=== PATIENT | male | born 1975 | race Caucasian/White ===

== ENCOUNTER 2021-04-15 05:40 | Inpatient (IN) | payer OTHER, SELFPAY ==
[2021-04-15] VITALS (7 sets, daily range): BP systolic 109–139; BP diastolic 66–82; PULSE 84–108; RESP 18; TEMP 36.8–37.6; O2SAT 95–98; BMI 36.8
--- NOTE | ~2021-04-15 | XR_ITS ---
EXAMINATION: XR CHEST CLINICAL INFORMATION: Nasogastric tube placement COMPARISON: None TECHNIQUE: AP portable view of the chest was obtained. FINDINGS: Enteric tube is seen traversing below the diaphragm with tip overlying the expected location of the upper fundus. There appears to be some atelectatic change at the right base. Heart normal size. No evidence of pulmonary edema. No pneumothorax or significant pleural effusion. XR/XR chest 1V IMPRESSION: Enteric tube tip traversing just below the diaphragm with tip overlying expected location of the fundus.
--- NOTE | ~2021-04-15 | CT_ITS ---
EXAMINATION: CT ABDOMEN AND PELVIS WITH CONTRAST CLINICAL INFORMATION: Abdominal pain. Diffuse tenderness. COMPARISON: None TECHNIQUE: Multidetector volumetric images were obtained from the superior aspect of the liver through the pubic symphysis following administration 100 mL of Omnipaque 350 intravenous contrast. Sagittal and coronal reformatted images were obtained on the technologist's workstation. Oral contrast: No This CT examination was performed using dose optimization techniques as appropriate, variously including the following: *Automated exposure control *Adjustment of mA and/or kV according to patient size (this includes techniques or standardized protocols for targeted exams where dose is matched to indication/reason for exam; i.e. extremities or head) *Use of iterative reconstruction technique DLP: 1043.0 mGy-cm FINDINGS: LUNG BASES: Motion related artifact is present. No dense airspace consolidation. LIVER, GALLBLADDER, AND BILIARY TREE: Mild diffuse hypodensity consistent with hepatic steatosis is seen without any superimposed focal liver lesion. The portal, hepatic veins are patent. The gallbladder is unremarkable with no evidence of radiopaque gallstones, gallbladder wall thickening, or obvious pericholecystic inflammatory changes. PANCREAS: Unremarkable. SPLEEN: Unremarkable. ADRENAL GLANDS: Unremarkable. KIDNEYS AND URETERS: The kidneys are normal in size, shape, and attenuation. No hydronephrosis, hydroureter, or calculi seen. No perinephric stranding. BLADDER: Suboptimally distended, grossly appears unremarkable. GASTROINTESTINAL TRACT: The stomach is distended. The proximal few loops of the small bowel appear decompressed. The medial small bowel loops within the left mid abdomen appear dilated with air-fluid level measures between 4.1-5.6 cm at their maximum anteroposterior dimension. The distal small bowel loops are decompressed. The large bowel is decompressed. The appendix is unremarkable. There is no evidence of any bowel wall thickening mesenteric edema or abnormal bowel wall enhancement noted. The findings are consistent with early complete versus partial mid to distal small bowel obstruction. ABDOMINAL WALL: No significant hernia is appreciated. LYMPH NODES: Normal. VASCULAR: Unremarkable. PELVIC VISCERA: Unremarkable. OSSEOUS STRUCTURES: Unremarkable. CT/CT abdomen pelvis w con IMPRESSION: 1. Abnormal contrast enhanced CT scan of the abdomen and pelvis showing features consistent with partial/early complete mid to distal small bowel obstruction. 2. Diffuse hepatic hypodensity consistent with hepatic steatosis.
--- NOTE | 2021-04-15 08:07 | ECG_ITS ---
Test Reason : ABD PAIN Blood Pressure : / mmHG Vent. Rate : 096 BPM Atrial Rate : 096 BPM P-R Int : 122 ms QRS Dur : 082 ms QT Int : 326 ms P-R-T Axes : 042 033 029 degrees QTc Int : 411 ms Normal sinus rhythm Normal ECG No previous ECGs available Referred By: Handy Posadas Electronically Signed By:HANNAH METZGER MD
--- NOTE | 2021-04-15 08:25 | ED.ABDPAIN ---
HPI - Abdominal Pain General Chief Complaint: Abdominal Pain Stated Complaint: abd pain Time Seen by Provider: 04/15/21 08:02 Source: patient Mode of arrival: EMS Limitations: language barrier (Patient's 1st language is [place]an, he speaks some Estonian, cable dispatcher used to obtain information) History of Present Illness HPI narrative: 45-year-old male who presents emergency department for evaluation of vomiting, diarrhea and abdominal pain. The patient's symptoms started yesterday at 9:00 p.m.. He states that he 1st developed vomiting. He vomited approximately 6 times with no blood in the emesis. He then had diarrhea. He states that he had too numerous to count episodes of loose watery stool with no blood in the stool. Shortly after developing symptoms he then developed abdominal pain. He describes the pain as a constant, burning sensation which is located throughout his abdomen is worse on his left side. He states that the pain is 10/10. He had subjective fevers and chills at home. He states that the pain does not radiate to his back but does radiate into both testicles. Denies any recent travel. He denies recent antibiotic use. This is his 1st episode. Related Data Allergies Allergy/AdvReac Type Severity Reaction Status Date / Time No Known Allergies Allergy Verified 04/15/21 08:06 Review of Systems Review of Systems Yes all other systems are reviewed and are negative Physical Exam Vital Signs: Vital Signs: Last Vital Signs Temp 98.2 F 04/15/21 07:58 Pulse 86 04/15/21 10:21 Resp 18 04/15/21 07:58 BP 139/82 04/15/21 10:21 Pulse Ox 98 04/15/21 07:58 Body Mass Index 36.8 Const: General: cooperative and in distress moderate (Secondary to pain) Nutritional Appearance: overweight Orientation/consciousness: oriented to person and oriented to place Limitations: no limitations HENMT: Head: Yes normal to inspection, Yes normocephalic and Yes atraumatic Ears: external ears normal General nose exam: Normal external nose present Face and sinus: Yes normal facial exam Mouth: Normal oral and palatal mucosa present Throat: Yes posterior oropharynx normal Eyes: Periorbital: periorbital findings normal Eyelids: Yes eyelids normal Conjunctivae: conjunctivae normal Sclerae: sclerae normal Corneas: corneas normal Pupils: Equal, round and reactive pupils present Direct Ophthalmoscopy: normal light reflex Neck: Neck: Yes full ROM, Yes no lymphadenopathy, Yes no meningeal signs, Yes trachea midline and Yes supple Chest: Chest palpation & inspection: normal inspection of the chest and normal palpation of entire chest wall Resp: Effort & Inspection: normal respiratory effort and able to speak in complete sentences Auscultation: clear to auscultation bilaterally Cardio: Rate: regular rate Rhythm: regular rhythm Heart sounds: S1 normal heart sound present, S2 normal heart sound present and no murmurs GI: Inspection: Yes distended Palpation (GI): Soft to palpation, Tenderness to palpation present (GI) in the LLQ (Moderate) and in the LUQ (Moderate), no guarding, not rigid and No hepatosplenomegaly present Auscultation: normal bowel sounds : General: Yes no CVA tenderness Back/Spine/Pelvis: Back: no CVA tenderness Cervical Spine: normal cervical lordosis Thoracic/Lumbar Spine: thoracic and lumbar spine normal to inspection Skin: Lesions: no lesions Rashes: no rashes Wounds: no wounds Neuro: General: oriented to person, oriented to place and no meningeal signs Cranial nerves: Yes CN's II-XII intact bilaterally and Yes Equal, round and reactive pupils present Cognition (Neuro): normal cognition Motor exam (neuro): 5/5 motor strength present throughout Extrem: General: Yes normal to inspection and Yes full ROM Psych: Appearance: well kempt Mental Status: mental status grossly normal Speech and movement: Normal speech and movement present Affect: normal affect Attitude: cooperative Thought process: Normal thought process present Thought content: Normal thought content present Course Course Course Narrative: 45-year-old male who presents emergency department for evaluation of nausea, vomiting, diarrhea subjective fever, chills and abdominal pain with symptoms starting yesterday at 9:00 p.m.. The patient's pain is located more on his left upper and lower quadrants of his abdomen. Vital signs were normal. Examination did reveal that he was in distress secondary to his pain, he had moderate left upper and left lower quadrant tenderness with mild diffuse abdominal tenderness. I ordered a laboratory evaluation to include CBC, CMP, lipase, urinalysis, EKG. The patient was treated with Toradol 30 mg IV for his pain, Zofran 4 mg IV for his nausea and vomiting. Is also ordered to get normal saline 1 L IV for dehydration. I will obtain a CT scan of the patient's abdomen pelvis without IV contrast. 0952: Patient's laboratory evaluation did reveal an elevated BUN and creatinine of 20 and 1.57. Lactic acid was also elevated at 2.5. The patient is obese with a BMI of 36.9 therefore I ordered a 30 cc/kilogram fluid bolus based on the patient's ideal body weight. Patient's CT scan of the abdomen pelvis is pending. 1324: The patient got minimal improvement with the IV Toradol was treated with morphine 4 mg IV. There was a delay in getting the patient's CT scan secondary to high volume in the emergency department. The patient's CT scan is consistent with partial/early complete mid to distal small-bowel obstruction. I did discuss this with the covering surgeon, Dr. Young who recommended an NG tube and admission to her surgical service. The patient is still having significant pain and he will be treated with Dilaudid 1 mg IV. MDM - Abdominal Pain Lab Data Result diagrams: 04/15/21 09:00 04/15/21 09:00 Labs: Lab Results 04/15/21 04/15/21 04/15/21 Range/Units 08:26 09:00 09:00 WBC 10.5 (4.8-10.8) X10*3/uL RBC 5.63 (4.60-5.80) X10*6/uL Hgb 17.3 (14.0-18.0) g/dl Hct 50.2 (42-52) % MCV 89.2 (80-98) fL MCH 30.7 (27.0-33.0) pg MCHC 34.5 (31.0-36.0) g/dl RDW 13.1 (11.0-16.0) % Plt Count 263 (160-400) X10*3/uL MPV 10.3 (9.4-12.4) fL Immature Gran % (Auto) 0.6 H (0.0-0.4) % Neut % (Auto) 91.9 H (45-73) % Lymph % (Auto) 3.3 L (20-40) % [place] % (Auto) 4.1 (2-11) % Eos % (Auto) 0.0 (0-4) % Baso % (Auto) 0.1 (0-2) % Lymph # (Auto) 0.4 L (1.2-4.9) X10*3/uL [place] # (Auto) 0.4 (0.1-1.2) X10*3/uL Eos # (Auto) 0.0 (0.0-0.4) X10*3/uL Baso # (Auto) 0.0 (0.0-0.2) X10*3/uL Abs Immat Gran (auto) 0.06 H (0.00-0.03) X10*3/uL Absolute Neuts (auto) 9.6 H (2.0-8.3) X10*3/uL Absolute Nucleated RBC 0.000 (0.0-0.012) X10*3/uL Nucleated RBC % (auto) 0.0 (0.0-0.2) /100WBC Smear Tech's Comments VERIFIED Sodium 138 (135-145) mmol/L Potassium 4.3 (3.3-5.1) mmol/L Chloride 103 (96-108) mmol/L Carbon Dioxide 26 (22-29) mmol/L Anion Gap 13 (12-20) BUN 20 H (9-16) mg/dL Creatinine 1.57 H (0.5-1.4) mg/dL Estim Creat Clear Calc 72.2 Estimated GFR 48 Random Glucose 119 H (60-115) mg/dL Lactic Acid (0.5-2.0) mmol/L Calcium 9.9 (8.4-10.2) mg/dL Lipase (8-78) U/L Urine Color DARK YELLOW Urine Appearance HAZY Urine pH 5.5 (5.0-8.0) Ur Specific [place] >= 1.030 H (1.005-1.025) Urine Protein 2+ H (NEG-TRACE) MG/DL Urine Glucose (UA) NEG (NEG) MG/DL Urine Ketones 15 (NEG) MG/DL Urine Blood NEG (NEG) Urine Nitrite POS H (NEG) Ur Leukocyte Esterase NEG (NEG) Urine RBC 0 (0) /HPF Urine WBC 0-2 (0-4) /HPF Ur Squamous Epith Cells 1+ /LPF Calcium Oxalate Crystal 1+ /LPF Amorphous Sediment 1+ /LPF Urine Bacteria 1+ /LPF Hyaline Casts 5-9 /LPF Granular Casts 0-2 /LPF Urine Mucus 2+ /LPF 04/15/21 04/15/21 Range/Units 09:00 09:00 WBC (4.8-10.8) X10*3/uL RBC (4.60-5.80) X10*6/uL Hgb (14.0-18.0) g/dl Hct (42-52) % MCV (80-98) fL MCH (27.0-33.0) pg MCHC (31.0-36.0) g/dl RDW (11.0-16.0) % Plt Count (160-400) X10*3/uL MPV (9.4-12.4) fL Immature Gran % (Auto) (0.0-0.4) % Neut % (Auto) (45-73) % Lymph % (Auto) (20-40) % Dawes % (Auto) (2-11) % Eos % (Auto) (0-4) % Baso % (Auto) (0-2) % Lymph # (Auto) (1.2-4.9) X10*3/uL [place] # (Auto) (0.1-1.2) X10*3/uL Eos # (Auto) (0.0-0.4) X10*3/uL Baso # (Auto) (0.0-0.2) X10*3/uL Abs Immat Gran (auto) (0.00-0.03) X10*3/uL Absolute Neuts (auto) (2.0-8.3) X10*3/uL Absolute Nucleated RBC (0.0-0.012) X10*3/uL Nucleated RBC % (auto) (0.0-0.2) /100WBC Smear Tech's Comments Sodium (135-145) mmol/L Potassium (3.3-5.1) mmol/L Chloride (96-108) mmol/L Carbon Dioxide (22-29) mmol/L Anion Gap (12-20) BUN (9-16) mg/dL Creatinine (0.5-1.4) mg/dL Estim Creat Clear Calc Estimated GFR Random Glucose (60-115) mg/dL Lactic Acid 2.5 H* (0.5-2.0) mmol/L Calcium (8.4-10.2) mg/dL Lipase 31 (8-78) U/L Urine Color Urine Appearance Urine pH (5.0-8.0) Ur Specific [place] (1.005-1.025) Urine Protein (NEG-TRACE) MG/DL Urine Glucose (UA) (NEG) MG/DL Urine Ketones (NEG) MG/DL Urine Blood (NEG) Urine Nitrite (NEG) Ur Leukocyte Esterase (NEG) Urine RBC (0) /HPF Urine WBC (0-4) /HPF Ur Squamous Epith Cells /LPF Calcium Oxalate Crystal /LPF Amorphous Sediment /LPF Urine Bacteria /LPF Hyaline Casts /LPF Granular Casts /LPF Urine Mucus /LPF ECG Data Attestation: I personally reviewed and interpreted this ECG as follows: Interpretation: 0832: Normal sinus rhythm rate of 96, normal CO, QRS and QTC intervals, no ST segment elevation, no ST segment depression, no PACs or PVCs. This is a normal EKG. [facility] Past Medical History [facility] Narrative: Past medical history: Sleep apnea, hyperlipidemia, GERD, chronic lower back pain. Past surgical history: None. Social history: The patient is a former smoker and he stopped 10 years ago. He smoked 1 pack of cigarettes per day times 20 years. He denies alcohol use. He denies drug use. Social History Social History Advance Directives: No Advance Directives Information Provided: No
[2021-04-15 09:02] LABS: Glucose Urine UA NEG (NEG); Leukocyte Esterase Urine NEG (NEG); Nitrite Urine POS (NEG); PH 5.5 (5.0-8.0); Specific Gravity - Urine >= 1.030 (1.005-1.025); UACC Culture Trigger YES; Urine Blood NEG (NEG); Urine Ketones 15 MG/DL (NEG); Urine Protein 2+ MG/DL (NEG-TRACE)
[2021-04-15 09:10] LABS: Basophils Percent Auto 0.1 % (0-2); Hematocrit 50.2 % (42-52); Hemoglobin 17.3 g/dl (14.0-18.0); Imm Gran Abs Auto 0.06 X10*3/uL (0.00-0.03); Imm Gran Pct Auto 0.6 % (0.0-0.4); Lymphocytes Absolute Auto 0.4 X10*3/uL (1.2-4.9); Lymphocytes Percent Auto 3.3 % (20-40); MANUAL DIFF FLAG SCAN; Mean Corpuscular HGB Conc 34.5 g/dl (31.0-36.0); Mean Corpuscular Hemoglobin 30.7 pg (27.0-33.0); Mean Corpuscular Volume 89.2 fL (80-98); Mean Platelet Volume 10.3 fL (9.4-12.4); Monocytes Absolute Auto 0.4 X10*3/uL (0.1-1.2); Monocytes Percent Auto 4.1 % (2-11); Neutrophils Absolute Auto 9.6 X10*3/uL (2.0-8.3); Neutrophils Percent Auto 91.9 % (45-73); Platelet Count 263 X10*3/uL (160-400); Red Blood Count 5.63 X10*6/uL (4.60-5.80); Red Cell Distribution Width 13.1 % (11.0-16.0); SCAN SMEAR FLAG 1; White Blood Count 10.5 X10*3/uL (4.8-10.8)
[2021-04-15 09:17] LABS: Appearance Urine HAZY; Color Urine DARK YELLOW
[2021-04-15 09:20] LABS: Amorphous Sediment Urine 1+ /LPF; Bacteria Urine 1+ /LPF; Calcium Oxalate Crystals Urine 1+ /LPF; Granular Casts Urine 0-2 /LPF; Mucus Urine 2+ /LPF; RBC Urine 0 /HPF (0); Squamous Epithelial Cell Urine 1+ /LPF; WBC Urine 0-2 /HPF (0-4)
[2021-04-15] MEDS: ondansetron HCL 4 MG/2 ML VIAL IVPUSH ×2 (09:24→18:22)
[2021-04-15] MEDS: Ketorolac Tromethamine 30 MG/ML VIAL IVPUSH (09:24)
[2021-04-15] MEDS: 0.9 % Sodium Chloride 1,000 ML 999 ML IV (09:24)
[2021-04-15 09:27] LABS: Anion Gap 13 (12-20); Blood Urea Nitrogen 20 mg/dL (9-16); Calcium 9.9 mg/dL (8.4-10.2); Carbon Dioxide 26 mmol/L (22-29); Chloride 103 mmol/L (96-108); Creatinine Clr Calc Pharmacy 72.2; Estimated Glomerular Filt Rate 48; Glucose Random 119 mg/dL (60-115); Potassium 4.3 mmol/L (3.3-5.1); Sodium 138 mmol/L (135-145)
--- NOTE | 2021-04-15 09:27 | PC.NURSE ---
PT HERE WITH ABD PAIN, MOSTLY ON LEFT SIDE 10/10 PAIN, LABS DONE, IV STARTED MEDS GIVEN PRE JAN. + BS IN ALL 4 QUAD, TENDER WITH PALPITATION
[2021-04-15 09:28] LABS: Lactic Acid 2.5 mmol/L (0.5-2.0); Lipase 31 U/L (8-78)
[2021-04-15 09:29] LABS: SLIDE REVIEW VERIFIED
[2021-04-15] MEDS: 0.9 % Sodium Chloride 2,052 ML 2052 ML IVCONT (10:44)
[2021-04-15] MEDS: Morphine Sulfate 4 MG/ML CARTRIDGE IVPUSH (10:51)
[2021-04-15 11:05] LABS: Reflex Lactate? Lactic Acid Added
[2021-04-15] MEDS: iohexoL 350 MG/ML 100 ML INFUS..BTL IV (12:22)
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
[2021-04-15] MEDS: HYDROmorphone HCl 1 MG/ML SYRINGE IVPUSH (14:37)
[2021-04-15 16:19] LABS: ~Lactic Acid-LAB USE ONLY 2.8 mmol/L (0.5-2.0)
[2021-04-15] MEDS: Enoxaparin Sodium 40 MG/0.4 ML SYRINGE SUBCUT (17:06)
[2021-04-15] MEDS: Dextrose 5 % and Lactated Ring 1,000 ML 100 ML IVCONT (17:06)
[2021-04-15 17:45] LABS: Reflex Lactate? 2 Y
[2021-04-15] MEDS: HYDROmorphone HCl 0.5 MG/0.5 ML SYRINGE IV (18:21)
[2021-04-15 19:24] LABS: ~Lactic Acid-LAB USE ONLY 3.3 mmol/L (0.5-2.0)
[2021-04-16] VITALS (7 sets, daily range): BP systolic 129–147; BP diastolic 61–85; PULSE 92–104; RESP 14–20; TEMP 36.6–37.3; O2SAT 93–98
[2021-04-16] MEDS: HYDROmorphone HCl 0.5 MG/0.5 ML SYRINGE IV ×2 (01:16→13:55)
[2021-04-16 07:15] LABS: Hematocrit 45.6 % (42-52); Hemoglobin 15.4 g/dl (14.0-18.0); Mean Corpuscular HGB Conc 33.8 g/dl (31.0-36.0); Mean Corpuscular Hemoglobin 30.2 pg (27.0-33.0); Mean Corpuscular Volume 89.4 fL (80-98); Platelet Count 220 X10*3/uL (160-400); Red Cell Distribution Width 12.9 % (11.0-16.0)
--- NOTE | 2021-04-16 07:31 | PM.PNGS ---
Subjective Subjective Date of Service: 04/16/21 Interval history: Feels improved today. Patient denies abdominal pain, nausea, or vomiting. Physical Exam Vital Signs: Vital Signs: Last Vital Signs Temp 98.3 F 04/16/21 04:00 Pulse 97 04/16/21 04:00 Resp 20 04/16/21 04:00 BP 142/85 H 04/16/21 04:00 Pulse Ox 96 04/16/21 04:00 Body Mass Index 36.8 Const: General: cooperative, comfortable, no acute distress, well developed, alert and awake Nutritional Appearance: overweight Orientation/consciousness: patient oriented x3 Limitations: no limitations Eyes: Sclerae: sclerae normal EOM: EOMs intact bilaterally Resp: Effort & Inspection: normal respiratory effort GI: Other: Soft, tympanitic, high-pitched bowel sounds, nontender to palpation Skin: Other: Warm, dry, no rashes Neuro: General: patient oriented x3 Extrem: General: Yes no clubbing, cyanosis or edema Progress Note: A&P Assessment and plan (1) Small bowel obstruction: Status: Acute Assessment and Plan: 45-year-old male patient with recurrence small-bowel obstruction but no previous history of abdominal surgery. Patient currently feels improved nasogastric decompression. Will continue nasogastric decompression. Patient does report passing flatus this morning. Will keep on IV fluids, NPO. Fall Risk Details Current Medications: Current Medications Generic Name Dose Route Start Last Admin Trade Name Freq PRN Reason Stop Dose Admin Acetaminophen 650 mg 04/15/21 15:56 Acetaminophen 325 Mg Tablet PO Q6H PRN fever Enoxaparin Sodium 40 mg 04/15/21 15:56 04/15/21 17:06 Enoxaparin Sodium 40 Mg/0.4 Ml Syringe SUBCUT 40 mg DAILY GUADALUPE Administration Hydromorphone HCl 0.5 mg 04/15/21 15:56 04/16/21 01:16 Hydromorphone Hcl 0.5 Mg/0.5 Ml Syringe IV 0.5 mg Q3H PRN Administration pain, severe Dextrose/Lactated Ringer's 1,000 mls @ 100 mls/hr 04/15/21 15:56 04/16/21 04:59 D5lr IVCONT Not Given .Q10H GUADALUPE Ondansetron HCl 4 mg 04/15/21 15:56 04/15/21 18:22 Ondansetron Hcl 4 Mg/2 Ml Vial IVPUSH 4 mg Q8H PRN Administration Nausea Sumatriptan Succinate 6 mg 04/15/21 14:43 Sumatriptan Succinate 6 Mg Vial SUBCUT DAILY PRN migraine headache Time Spent With Patient Time: Total time spent is greater than 50% in coordination of care (as documented) at patient's floor/unit and/or counseling patient: Time with patient: 15 - 24 minutes Procedures Date of Service Date of Service: 04/16/21
[2021-04-16 08:11] LABS: Anion Gap 11 (12-20); Blood Urea Nitrogen 18 mg/dL (9-16); Carbon Dioxide 24 mmol/L (22-29); Chloride 105 mmol/L (96-108); Creatinine Clr Calc Pharmacy 106.9; Estimated Glomerular Filt Rate > 60; Glucose Fasting 109 mg/dL (60-99); Potassium 3.7 mmol/L (3.3-5.1); Sodium 136 mmol/L (135-145)
[2021-04-16 08:36] LABS: Calcium 8.3 mg/dL (8.4-10.2)
[2021-04-16] MEDS: Enoxaparin Sodium 40 MG/0.4 ML SYRINGE SUBCUT (09:14)
[2021-04-16] MEDS: Dextrose 5 % and Lactated Ring 1,000 ML 100 ML IVCONT ×2 (11:04→22:44)
--- NOTE | 2021-04-16 15:09 | MHC.CM.PN ---
CM MET WITH PT WITH THE ASSISTANCE OF [facility]. PT REPORTS HE LIVES AT HOME WITH HIS AND CHILDREN/. PT REPORTS HE DOES NOT HAVE SERVICES IN THE HOME BUT HE AND HIS HELP EACH OTHER NEEDED. PT REPORTS HE USES A CANE TO AMBULATE. PT REPORTS HIS PCP IS VAIBHAV POLANCO AND HE STATES HE ALREADY HAS A HCP COMPLETED NAMING HIS HIS AGENT. CURRENT DC PLAN IS HOME WITH NO SERVICES. FAMILY TO TRANSPORT
[2021-04-17] VITALS (7 sets, daily range): BP systolic 133–162; BP diastolic 70–96; PULSE 73–92; RESP 16–20; TEMP 36.2–37.3; O2SAT 95–99
--- NOTE | 2021-04-17 07:45 | PM.PNGS ---
Subjective Subjective Date of Service: 04/17/21 Interval history: Patient feels improved with decreased abdominal pain and no further nausea or vomiting. Patient having BMs and passing flatus. Physical Exam Vital Signs: Vital Signs: Last Vital Signs Temp 98.1 F 04/17/21 07:29 Pulse 82 04/17/21 07:29 Resp 17 04/17/21 07:29 BP 133/70 04/17/21 07:29 Pulse Ox 97 04/17/21 07:29 Body Mass Index 36.8 Const: General: cooperative, healthy appearing, comfortable and no acute distress Resp: Effort & Inspection: normal respiratory effort GI: Other: soft, nondistended, nontender, no tympany Skin: Other: warm, dry, no rash Extrem: Other: no edema Progress Note: A&P Assessment and plan (1) Small bowel obstruction: Status: Acute Assessment and Plan: Partial small bowel obstruction is now resolved and his bowel function has returned. The NGT will be removed and he will start on clear liquids today. If this is well tolerated, I will advance to a regular diet tomorrow. Fall Risk Details Current Medications: Current Medications Generic Name Dose Route Start Last Admin Trade Name Freq PRN Reason Stop Dose Admin Acetaminophen 650 mg 04/15/21 15:56 Acetaminophen 325 Mg Tablet PO Q6H PRN fever Enoxaparin Sodium 40 mg 04/15/21 15:56 04/16/21 09:14 Enoxaparin Sodium 40 Mg/0.4 Ml Syringe SUBCUT 40 mg DAILY GUADALUPE Administration Hydromorphone HCl 0.5 mg 04/15/21 15:56 04/16/21 13:55 Hydromorphone Hcl 0.5 Mg/0.5 Ml Syringe IV 0.5 mg Q3H PRN Administration pain, severe Dextrose/Lactated Ringer's 1,000 mls @ 100 mls/hr 04/15/21 15:56 04/17/21 07:10 D5lr IVCONT Not Given .Q10H GUADALUPE Ondansetron HCl 4 mg 04/15/21 15:56 04/15/21 18:22 Ondansetron Hcl 4 Mg/2 Ml Vial IVPUSH 4 mg Q8H PRN Administration Nausea Sumatriptan Succinate 6 mg 04/15/21 14:43 Sumatriptan Succinate 6 Mg Vial SUBCUT DAILY PRN migraine headache Time Spent With Patient Time: Total time spent is greater than 50% in coordination of care (as documented) at patient's floor/unit and/or counseling patient: Time with patient: 15 - 24 minutes Procedures Date of Service Date of Service: 04/17/21
[2021-04-17] MEDS: Dextrose 5 % and Lactated Ring 1,000 ML 100 ML IVCONT (08:49)
[2021-04-17] MEDS: Enoxaparin Sodium 40 MG/0.4 ML SYRINGE SUBCUT (08:49)
[2021-04-18 04:00] VITALS: BP 117/64; PULSE 69; RESP 16; TEMP 36.4; O2SAT 97
[2021-04-18 07:22] VITALS: BP 147/89; PULSE 77; RESP 18; TEMP 36.9; O2SAT 95
--- NOTE | 2021-04-18 07:42 | PM.PNGS ---
Subjective Subjective Date of Service: 04/18/21 Interval history: Tolerated clear liquids without nausea or vomiting; + BM Physical Exam Vital Signs: Vital Signs: Last Vital Signs Temp 98.5 F 04/18/21 07:22 Pulse 77 04/18/21 07:22 Resp 18 04/18/21 07:22 BP 147/89 H 04/18/21 07:22 Pulse Ox 95 04/18/21 07:22 Body Mass Index 36.8 Const: General: cooperative, comfortable, alert and awake Resp: Effort & Inspection: normal respiratory effort GI: Other: soft, non-distended, non-tender, no rebound or guarding Percussion: Yes normal to percussion Extrem: Other: no edema Progress Note: A&P Assessment and plan (1) Small bowel obstruction: Status: Acute Assessment and Plan: Patient tolerated a clear liquid diet yesterday without increased pain, nausea or vomiting. Patient passing liquid BM's yesterday and flatus. Will advance diet to regular this morning. Will check back later today, and if well tolerated will discharge to home. Patient understands and agrees with the plan. Fall Risk Details Current Medications: Current Medications Generic Name Dose Route Start Last Admin Trade Name Freq PRN Reason Stop Dose Admin Acetaminophen 650 mg 04/15/21 15:56 Acetaminophen 325 Mg Tablet PO Q6H PRN fever Enoxaparin Sodium 40 mg 04/15/21 15:56 04/17/21 08:49 Enoxaparin Sodium 40 Mg/0.4 Ml Syringe SUBCUT 40 mg DAILY GUADALUPE Administration Hydromorphone HCl 0.5 mg 04/15/21 15:56 04/16/21 13:55 Hydromorphone Hcl 0.5 Mg/0.5 Ml Syringe IV 0.5 mg Q3H PRN Administration pain, severe Dextrose/Lactated Ringer's 1,000 mls @ 100 mls/hr 04/15/21 15:56 04/18/21 07:15 D5lr IVCONT Not Given .Q10H GUADALUPE Ondansetron HCl 4 mg 04/15/21 15:56 04/15/21 18:22 Ondansetron Hcl 4 Mg/2 Ml Vial IVPUSH 4 mg Q8H PRN Administration Nausea Sumatriptan Succinate 6 mg 04/15/21 14:43 Sumatriptan Succinate 6 Mg Vial SUBCUT DAILY PRN migraine headache Time Spent With Patient Time: Total time spent is greater than 50% in coordination of care (as documented) at patient's floor/unit and/or counseling patient: Time with patient: 15 - 24 minutes Progress Note: Quality Stroke Does the patient have a stroke diagnosis?: No VTE Prior VTE?: No VTE Risk Level:: Surgical - low VTE Device Contraindication: N/A - Device Ordered VTE Drug Contraindication: Treatment Not Indicated Procedures Date of Service Date of Service: 04/18/21
[2021-04-18] MEDS: Dextrose 5 % and Lactated Ring 1,000 ML 100 ML IVCONT (10:10)
[2021-04-18] MEDS: Enoxaparin Sodium 40 MG/0.4 ML SYRINGE SUBCUT (10:10)
[2021-04-18 11:57] VITALS: BP 140/86; PULSE 79; RESP 19; TEMP 36.3; O2SAT 97
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
--- NOTE | 2021-04-18 13:57 | MHC.CM.PN ---
PT DISCHARGING HOME SELF-CARE W/DIRECTIONS TO FOLLOW-UP W/DR. SILVA IN 2 WKS, FAMILY TO TRANSPORT
== END 2021-04-18 14:22 | disposition home or self-care (01) | DRG 247 ==
LOC: HO.ED 13:39 → HO.EDOVER 15:03 → HO.S3 23:44
PROVIDERS: Admitting Provider Surgery; Emergency Provider Emergency Medicine Emergency Medical Services; Visit Provider Surgery
DX: K56.600 Partial intestinal obstruction, unspecified as to cause (principal); E86.0 Dehydration; Z79.899 Other long term (current) drug therapy
CPT/HCPCS: 36415; 71045; 74177; 80048; 81001; 81003; 83605; 83690; 85025; 85027; 87086; 93005; 99285; J1170; J1650; J1885; J2270; J2405; Q9967

== ENCOUNTER → 2021-05-10 14:32 | Outpatient (BNVA) | payer OTHER, SELFPAY | PROVIDERS: Visit Provider Surgery | DX: K56.609 Unspecified intestinal obstruction, unspecified as to partial versus complete obstruction (principal) | CPT/HCPCS: 99212 ==

== ENCOUNTER 2021-06-10 12:55 | Emergency (ER) | payer OTHER, SELFPAY ==
[2021-06-10 13:27] VITALS: BP 125/72; PULSE 87; RESP 18; TEMP 36.5; O2SAT 95; BMI 30.4
[2021-06-10] MEDS: Diphth,Pertus(ACell),Tet Adult 0.5 ML SYRINGE IM (13:51)
[2021-06-10] MEDS: Lidocaine HCl 1 % 20 ML VIAL SUBCUT (13:52)
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
== END 2021-06-10 14:49 | disposition home or self-care (01) ==
PROVIDERS: Emergency Provider Emergency Medicine Emergency Medical Services
DX: S51.812A Laceration without foreign body of left forearm, initial encounter (principal); W31.2XXA Contact with powered woodworking and forming machines, initial encounter; Y93.9 Activity, unspecified; Y92.009 Unspecified place in unspecified non-institutional (private) residence as the place of occurrence of the external cause; Y99.9 Unspecified external cause status
CPT/HCPCS: 12002; 90471; 90715; 99283; 99284

== ENCOUNTER 2021-08-20 12:36 | Emergency (ER) | payer OTHER, SELFPAY ==
[2021-08-20 13:29] VITALS: BP 130/78; PULSE 74; RESP 18; TEMP 36.7; O2SAT 99; BMI 29.0
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
[2021-08-20] MEDS: Amoxicillin/Potassium Clav 875 MG TABLET PO (14:29)
== END 2021-08-20 14:31 | disposition home or self-care (01) ==
PROVIDERS: Emergency Provider Student in an Organized Health Care Education/Training Program
DX: H60.91 Unspecified otitis externa, right ear (principal); Z79.899 Other long term (current) drug therapy
CPT/HCPCS: 99282; 99283

== ENCOUNTER 2022-08-08 20:29 | Emergency (ER) | payer OTHER, SELFPAY ==
[2022-08-08 20:46] VITALS: BP 135/91; PULSE 82; RESP 20; TEMP 36.7; O2SAT 97; BMI 35.7
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
[2022-08-09 01:04] VITALS: BP 132/89; PULSE 74; RESP 16; O2SAT 97
--- OUTSIDE RECORDS SUMMARY | 2022-08-09 01:07 | XMS_ITS | Continuity of Care Document ---
:1975 Author Organization [facility] Address [address] [place] [address]- Care Team Providers Name Role Phone Rose Bolanos NP Primary Care Physician [phone] Encounter [facility] Date(s): 04/24/22 - 05/25/[address] [address]- Attending Physician: Not on Staff, Attending MD Allergies, Adverse Reactions, Alerts No Known Allergies Immunizations Given and Recorded Vaccine Date Status Refusal Reason influenza virus vaccine, inactivated 12/11/21 Given influenza virus vaccine, inactivated 08/19/19 Given influenza virus vaccine, inactivated 09/01/18 Given influenza virus vaccine, inactivated 10/15/17 Given influenza virus vaccine, inactivated 10/17/16 Given influenza virus vaccine, inactivated 08/17/15 Given influenza virus vaccine, inactivated 09/28/14 Given influenza virus vaccine, inactivated 08/24/13 Given SARS-CoV-2 (COVID-19) mRNA-1273 vaccine 07/31/21 Recorded SARS-CoV-2 (COVID-19) mRNA-1273 vaccine 07/03/21 Recorded FluLaval (oldterm)1 01/11/13 Given tetanus-diphtheria toxoids (Td)2 11/25/11 Given Fluzone (oldterm)3 11/25/11 Given 1Admin Note: VIS given- 05/201280814Thrzz Note: vis 04/12/943Admin Note: vis 06/13/09 Medications acetaminophen 650 mg oral tablet, extended release 1 tablet = 650 mg, By Mouth, Every 8 hours, Liberian sig, # 50 tablet, 2 Refills, Maintenance, 03/02/19 17:24:22 EDT Start Date: 03/02/19 Status: OrderedBiPAP Equipment See Instructions, # 1 each, Refills 12, Tot. Refills 12, Maintenance, BIpap- tubes , mask & flilters. Dx: CYNTHIA, 10/16/15 15:12:04, Compound Start Date: 10/16/15 Status: OrderedCipro HC 0.2%-1% otic suspension 3 drops, Ears, Both, 2 times a day, use 3 drops bid in L ear for 7 days, # 10 mL, 0 Refills, Maintenance, 02/05/21 15:15:00 EDT, [facility]/pharmacy #[id number], Rx in Liberian, 3 drops Ears, Both 2 times a day,x7 days,Instr:use 3 drops bid in L ear for 7 days, 172... Start Date: 02/05/21 Stop Date: 02/12/21 Status: OrderedclonazePAM 0.5 mg oral tablet 1 tablet = 0.5 mg, By Mouth, 2 times a day, Rx'd by psych, 0 Refills, Maintenance, 01/07/19 13:55:38EST, Tablet Start Date: 01/07/19 Status: Orderedduloxetine 60 mg oral enteric coated capsule 1 capsule = 60 mg, By Mouth, 2 times a day, Rx'd by psych, # 60 capsule, 0 Refills, Maintenance, 01/07/19 13:56:09 EST, EC Capsule Start Date: 01/07/19 Status: Orderedgabapentin 100 mg oral capsule 100 mg, 1, capsule, By Mouth, 3 times a day, # 90 capsule, Refills 1, Tot. Refills 1, Maintenance, 03/25/19 15:10:20 EDT, Route to Pharmacy Electronically, [id number], [facility] [address] Start Date: 03/25/19 Status: Orderedmeloxicam 7.5 mg oral tablet See Instructions, [facility] [place], # 30 tablet, 2 Refills, [facility], 172.72, cm, 04/18/22 16:13:00 EDT, Height Start Date: 05/01/22 Status: Orderedomeprazole 20 mg oral enteric coated capsule 1 capsule, By Mouth, Daily, # 30 capsule, 2 Refills, Maintenance, 02/25/22 9:24:00 EDT, [facility]/pharmacy#2071, 172.72, cm, 12/11/21 15:33:00 EST, Height Start Date: 02/25/22 Status: Orderedprazosin 2 mg oral capsule 1 capsule = 2 mg, By Mouth, Daily at bedtime, Rx'd by psych, 0 Refills, Maintenance, 01/07/19 13:56:38 EST Start Date: 01/07/19 Status: OrderedSUMAtriptan 100 mg oral tablet See Instructions, TAKE 1 TABLET BY MOUTH EVERY DAY NEEDED MIGRAINE HEADACHE - MAX 3 DOSES PER WEEK, # 9 tablet, 2 Refills, Maintenance, 05/01/22 14:32:00 EDT, [facility]/pharmacy #[id number], Rx in Liberian, 172.72, cm, 04/18/22 16:13:00 EDT, Height Start Date: 05/01/22 Status: OrderedTopamax 50 mg oral tablet See Instructions, 1 tablet By Mouth in the AM, and take 2 tablets at bedtime., # 90 tablet, 11 Refills, Maintenance, 07/13/20 11:56:00 EDT, [facility]/pharmacy #[id number], print in swazi please., 172.72, cm, 01/11/20 8:49:00 EDT, Height Start Date: 07/13/20 Status: Orderedzolpidem 10 mg oral tablet 1 tablet = 10 mg, By Mouth, Daily at bedtime, PRN as needed for insomnia, Rx'd by psych, 0 Refills, Maintenance, 01/07/19 13:55:12 EST, Tablet Start Date: 01/07/19 Status: Ordered Problem List Condition Effective Dates Status Health Status Informant Abdominal pain(Confirmed) Active Allergic rhinitis(Confirmed) Active Arthralgia of the lower leg(Confirmed) Active Back pain(Confirmed) Active Headache(Confirmed) Active ROMEO (headache)(Confirmed) Active Lightheadedness(Confirmed) Active Low back pain(Confirmed) Active Obese class I(Confirmed) Active Obstructive sleep apnea Active syndrome(Confirmed) Other Respiratory 05/21/12 Active Tuberculosis(Confirmed) Paranoid Type Schizophrenia(Confirmed) 11/25/11 Active Healthcare maintenance(Confirmed) Active Vertigo(Confirmed) Active Social History Social History Type Response Smoking Status Former smoker entered on: 07/22/16 Sex
--- OUTSIDE RECORDS SUMMARY | 2022-08-09 01:07 | XMS_ITS | Continuity of Care Document ---
:1975 Author Organization [facility] Address [address] [place] [address]- Care Team Providers Name Role Phone Luis Miguel SALINAS, Rose Whiting Primary Care Physician [place] [facility] [place] 11/21/21 - 12/27/[address] [address] Attending Physician: Rose Bolanos NP Admitting Physician: Luis Miguel SALINAS, Rose hWiting Referring Physician: Luis Miguel SALINAS, Rose Whiting Allergies, Adverse Reactions, Alerts No Known Allergies [...] (oldterm)3 11/25/11 Given 1Admin Note: VIS given- 05/201247507Xaryh Note: vis 04/12/943Admin Note: vis 06/13/09 Medications acetaminophen 650 mg oral tablet, extended release 1 tablet = 650 mg, By Mouth, Every 8 hours, Bengali sig, # 50 tablet, 2 Refills, Maintenance, [...] mL, 0 Refills, Maintenance, 02/05/21 15:15:00 EDT, [facility]/pharmacy #[id number], Rx in Bengali, 3 drops Ears, Both 2 times a [...] 03/25/19 15:10:20 EDT, Route to Pharmacy Electronically, [id number], [facility] [address] Start Date: 03/25/19 Status: Orderedmagnesium oxide 400 mg oral tablet 1 tablet = 400 mg, By Mouth, Daily, for 30 days, take with food, # 30 tablet, 11 Refills, Acute 01/28/22 9:38:00 EDT, 02/02/21 9:38:00 EDT, [facility]/pharmacy #[id number], Partial fill upon patient request if the prescription is for a schedule II opioid drug., 17... Start Date: 02/02/21 Stop Date: 01/28/22 Status: Orderedmeloxicam 7.5 mg oral tablet See Instructions, [facility] [place], # 30 tablet, 1 Refills, [facility], 172.72, cm, 10/08/21 8:46:00 EST, Height Start Date: 11/09/21 Status: Orderedomeprazole 20 mg oral enteric coated capsule 1 capsule, By Mouth, Daily, # 30 capsule, 2 Refills, Maintenance, 08/22/21 16:39:00 EDT, [id number], 172.72, cm, 02/19/21 9:02:00 EDT, Height Start Date: 08/22/21 Status: Orderedprazosin 2 mg oral capsule 1 capsule = 2 mg, By Mouth, Daily at bedtime, Rx'd by psych, 0 Refills, Maintenance, 01/07/19 13:56:38 EST Start Date: 01/07/19 Status: OrderedSUMAtriptan 100 mg oral tablet See Instructions, TAKE 1 TABLET BY MOUTH EVERY DAY NEEDED MIGRAINE HEADACHE - MAX 3 DOSES PER WEEK, # 9 tablet, 2 Refills, [facility], 172.72, cm, 10/08/21 8:46:00 EST, Height Start Date: 10/08/21 Status: OrderedTopamax 50 mg oral tablet See Instructions, 1 tablet By Mouth in the AM, and take 2 tablets at bedtime., # 90 tablet, 11 Refills, Maintenance, 07/13/20 11:56:00 EDT, [id number], print in [place] please., 172.72, cm, 01/11/20 8:49:00 EDT, Height [...]
--- OUTSIDE RECORDS SUMMARY | 2022-08-09 01:07 | XMS_ITS | Continuity of Care Document ---
:1975 Author Organization [facility] Address [address] [place] [address]- Care Team Providers Name Role Phone Rose Bolanos NP Primary Care Physician Encounter [facility] Date(s): 06/19/22 - 07/19/[address] [address]- Allergies, Adverse Reactions, Alerts No Known Allergies [...] (oldterm)3 11/25/11 Given 1Admin Note: VIS given- 05/[id number] Note: vis 04/12/943Admin Note: vis 06/13/09 Medications acetaminophen 650 mg oral tablet, extended release 1 tablet = 650 mg, By Mouth, Every 8 hours, Angolan sig, # 50 tablet, 2 Refills, Maintenance, [...] mL, 0 Refills, Maintenance, 02/05/21 15:15:00 EDT, [facility]/pharmacy #[id number], Rx in Angolan, 3 drops Ears, Both 2 times a [...] 03/25/19 15:10:20 EDT, Route to Pharmacy Electronically, [id number], [facility] [id number] Start Date: 03/25/19 Status: Orderedmeloxicam 7.5 mg oral tablet See Instructions, [facility] [place], # 30 tablet, 2 Refills, [facility], 172.72, cm, 04/18/22 16:13:00 EDT, Height Start Date: 05/01/22 Status: Orderedomeprazole 20 mg oral enteric coated capsule 1 capsule, By Mouth, Daily, # 30 capsule, 2 Refills, Maintenance, 06/19/22 15:36:00 EDT, [facility]/pharmacy #[id number], 172.72, cm, 04/18/22 16:13:00 EDT, Height Start Date: 06/19/22 Status: Orderedprazosin 2 mg oral capsule 1 capsule = 2 mg, By Mouth, Daily at bedtime, Rx'd by psych, 0 Refills, Maintenance, 01/07/19 13:56:38 EST Start Date: 01/07/19 Status: OrderedSUMAtriptan 100 mg oral tablet See Instructions, TAKE 1 TABLET BY MOUTH EVERY DAY NEEDED MIGRAINE HEADACHE - MAX 3 DOSES PER WEEK, # 9 tablet, 2 Refills, Maintenance, 05/01/22 14:32:00 EDT, [id number], Rx in Angolan, 172.72, cm, 04/18/22 16:13:00 EDT, Height Start Date: 05/01/22 Status: OrderedTopamax 50 mg oral tablet See Instructions, 1 tablet By Mouth in the AM, and take 2 tablets at bedtime., # 90 tablet, 11 Refills, Maintenance, 07/13/20 11:56:00 EDT, [id number], print in belarusian please., 172.72, cm, 01/11/20 8:49:00 EDT, Height [...] Status Former smoker entered on: 07/22/16 Sex Care Team PersonnelName: Rose Bolanos NP Address: [address] [place] [address]
--- OUTSIDE RECORDS SUMMARY | 2022-08-09 01:07 | XMS_ITS | Continuity of Care Document ---
:1975 Author Organization [facility] Address [address] [place] [address]- Care Team Providers Name Role Phone Rose Bolanos NP Primary Care Physician [phone] Encounter [facility] Date(s): 06/05/21 - 07/05/[address] [address]- Allergies, Adverse Reactions, Alerts Substance Reaction Severity Status NKA Active Immunizations Given and Recorded Vaccine Date Status Refusal Reason influenza virus vaccine, inactivated 08/19/19 Given influenza virus vaccine, inactivated 09/01/18 Given influenza virus vaccine, inactivated 10/15/17 Given influenza virus vaccine, inactivated 10/17/16 Given influenza virus vaccine, inactivated 08/17/15 Given influenza virus vaccine, inactivated 09/28/14 Given influenza virus vaccine, inactivated 08/24/13 Given FluLaval (oldterm)1 01/11/13 Given tetanus-diphtheria toxoids (Td)2 11/25/11 Given Fluzone (oldterm)3 11/25/11 Given 1Admin Note: VIS given- 05/201224464Strwc Note: vis 04/12/943Admin Note: vis 06/13/09 Medications acetaminophen 650 mg oral tablet, extended release 1 tablet = 650 mg, By Mouth, Every 8 hours, Belarusian sig, # 50 tablet, 2 Refills, Maintenance, [...] mL, 0 Refills, Maintenance, 02/05/21 15:15:00 EDT, [facility]/pharmacy #[id number], Rx in Belarusian, 3 drops Ears, Both 2 times a [...] 03/25/19 15:10:20 EDT, Route to Pharmacy Electronically, [id number], [facility] [address] Start Date: 03/25/19 Status: Orderedgabapentin 400 mg oral capsule 400 mg, 1, capsule, By Mouth, 2 times a day, Takes once to twice a day, Refills 0, Maintenance, 06/03/19 9:59:32 EDT Start Date: 06/03/19 Status: Orderedmagnesium oxide 400 mg oral tablet 1 tablet = 400 mg, By Mouth, Daily, for 30 days, take with food, # 30 tablet, 11 Refills, Acute 01/28/22 9:38:00 EDT, 02/02/21 9:38:00 EDT, [facility]/pharmacy #[id number], Partial fill upon patient request if the prescription is for a schedule II opioid drug., 17... Start Date: 02/02/21 Stop Date: 01/28/22 Status: Orderedomeprazole 20 mg oral enteric coated capsule 1 capsule, By Mouth, Daily, # 30 capsule, 2 Refills, Maintenance, 02/05/21 16:01:00 EDT, [facility], 172.72, cm, 02/02/21 9:05:00 EDT, Height Start Date: 02/05/21 Status: Orderedprazosin 2 mg oral capsule 1 capsule = 2 mg, By Mouth, Daily at bedtime, Rx'd by psych, 0 Refills, Maintenance, 01/07/19 13:56:38 EST Start Date: 01/07/19 Status: OrderedSUMAtriptan 100 mg oral tablet See Instructions, TOME CLAUDIA TABLETONCE NEEDED FOR MIGRAINE MAY REPEAT IN 2 HRS IF NEED NO MORE THAN 3 DOSES PER WEEK, # 9 tablet, 2 Refills, Soft Stop, [facility] [address], 172.72, cm, 02/19/21 9:02:00 EDT, Height Start Date: 05/23/21 Status: OrderedTopamax 50 mg oral tablet See Instructions, 1 tablet By Mouth in the AM, and take 2 tablets at bedtime., # 90 tablet, 11 Refills, Maintenance, 07/13/20 11:56:00 EDT, [facility]/pharmacy #[id number], print in cook islander please., 172.72, cm, 01/11/20 8:49:00 EDT, Height Start Date: 07/13/20 Status: Orderedzolpidem 10 mg oral tablet 1 tablet = 10 mg, By Mouth, Daily at bedtime, PRN as needed for insomnia, Rx'd by psych, 0 Refills, Maintenance, 01/07/19 13:55:12 EST, Tablet Start Date: 01/07/19 Status: Ordered Problem List Condition Effective Dates Status Health Status Informant Allergic rhinitis(Confirmed) Active Arthralgia of the lower leg(Confirmed) Active Headache(Confirmed) Active ROMEO (headache)(Confirmed) Active Lightheadedness(Confirmed) Active Low back pain(Confirmed) Active Obstructive sleep apnea Active syndrome(Confirmed) Other Respiratory 05/21/12 Active Tuberculosis(Confirmed) Paranoid Type Schizophrenia(Confirmed) 11/25/11 Active Vertigo(Confirmed) Active Social History Social History Type Response Smoking Status Former smoker entered on: 07/22/16 Sex
--- OUTSIDE RECORDS SUMMARY | 2022-08-09 01:07 | XMS_ITS | Continuity of Care Document ---
:1975 Author Organization [facility] Address [address] [place] [address]- Care Team Providers Name Role Phone Rose Bolanos NP Primary Care Physician [phone] Encounter [facility] Date(s): 09/11/21 - 10/11/[address] [address]- Allergies, Adverse Reactions, Alerts Substance Reaction Severity Status NKA Active Immunizations Given and Recorded Vaccine Date Status Refusal Reason SARS-CoV-2 (COVID-19) mRNA-1273 vaccine 07/31/21 Recorded SARS-CoV-2 (COVID-19) mRNA-1273 vaccine 07/03/21 Recorded influenza virus vaccine, inactivated 08/19/19 Given influenza virus vaccine, inactivated 09/01/18 Given influenza virus vaccine, inactivated 10/15/17 Given influenza virus vaccine, inactivated 10/17/16 Given influenza virus vaccine, inactivated 08/17/15 Given influenza virus vaccine, inactivated 09/28/14 Given influenza virus vaccine, inactivated 08/24/13 Given FluLaval (oldterm)1 01/11/13 Given tetanus-diphtheria toxoids (Td)2 11/25/11 Given Fluzone (oldterm)3 11/25/11 Given 1Admin Note: VIS given- 05/201212750Ypipt Note: vis 04/12/943Admin Note: vis 06/13/09 Medications acetaminophen 650 mg oral tablet, extended release 1 tablet = 650 mg, By Mouth, Every 8 hours, Serbian sig, # 50 tablet, 2 Refills, Maintenance, [...] mL, 0 Refills, Maintenance, 02/05/21 15:15:00 EDT, [facility]/pharmacy #2071, Rx in Serbian, 3 drops Ears, Both 2 times a [...] 03/25/19 15:10:20 EDT, Route to Pharmacy Electronically, [id number], [facility] [address] Start Date: 03/25/19 Status: Orderedmagnesium oxide 400 mg oral tablet 1 tablet = 400 mg, By Mouth, Daily, for 30 days, take with food, # 30 tablet, 11 Refills, Acute 01/28/22 9:38:00 EDT, 02/02/21 9:38:00 EDT, [facility]/pharmacy #2071, Partial fill upon patient request if the prescription is for a schedule II opioid drug., 17... Start Date: 02/02/21 Stop Date: 01/28/22 Status: Orderedmeloxicam 7.5 mg oral tablet 1 tablet = 7.5 mg, By Mouth, Daily, # 30 tablet, 1 Refills, Maintenance, 09/17/21 15:18:00 EST, Tablet, [facility]/pharmacy #2071, Partial fill upon patient request if the prescription is for a schedule II opioid drug., 172.72, cm, 02/19/21 9:02:00 EDT, Height Start Date: 09/17/21 Status: Orderedomeprazole 20 mg oral enteric coated [...] PER WEEK, # 9 tablet, 2 Refills, [facility], 172.72, cm, 10/08/21 8:46:00 EST, Height Start Date: 10/08/21 Status: OrderedSUMAtriptan 100 mg oral tablet See Instructions, TOME CLAUDIA TABLETONCE NEEDED FOR MIGRAINE MAY REPEAT IN 2 HRS IF NEED NO MORE THAN 3 DOSES PER WEEK, # 9 tablet, 2 Refills, [facility], 172.72, cm, 02/19/21 9:02:00 EDT, Height Start Date: 08/21/21 Status: OrderedTopamax 50 mg oral tablet See Instructions, 1 tablet By Mouth in the AM, and take 2 tablets at bedtime., # 90 tablet, 11 Refills, Maintenance, 07/13/20 11:56:00 EDT, [id number], print in chadian please., 172.72, cm, 01/11/20 8:49:00 EDT, Height [...]
--- OUTSIDE RECORDS SUMMARY | 2022-08-09 01:07 | XMS_ITS | Continuity of Care Document ---
:1975 Author Organization [facility] Address [address] [place] [address]- Care Team Providers Name Role Phone Rose Bolanos NP Primary Care Physician [facility]counter [facility] Date(s): 04/18/22 - 05/18/22 [facility] [address] [place], [place] [address] Attending Physician: AdmKanika gutiérrez Admitting Physician: Admtr, Kanika Referring Physician: Admtr, Ar8 Allergies, Adverse Reactions, Alerts No Known Allergies [...] (oldterm)3 11/25/11 Given 1Admin Note: VIS given- 05/201221691Pvwmg Note: vis 04/12/943Admin Note: vis 06/13/09 Medications acetaminophen 650 mg oral tablet, extended release 1 tablet = 650 mg, By Mouth, Every 8 hours, Citizen [place] sig, # 50 tablet, 2 Refills, Maintenance, [...] mL, 0 Refills, Maintenance, 02/05/21 15:15:00 EDT, [facility]/pharmacy #2071, Rx in [place], 3 drops Ears, Both 2 times a [...] 03/25/19 15:10:20 EDT, Route to Pharmacy Electronically, [id number], [facility] [address] Start Date: 03/25/19 Status: Orderedmeloxicam 7.5 mg oral tablet See Instructions, [facility] LIGHT [facility], # 30 tablet, 2 Refills, [facility], 172.72, cm, 04/18/22 16:13:00 EDT, Height Start Date: 05/01/22 Status: Orderedomeprazole 20 mg oral enteric coated capsule 1 capsule, By Mouth, Daily, # 30 capsule, 2 Refills, Maintenance, 02/25/22 9:24:00 EDT, [facility], 172.72, cm, 12/11/21 15:33:00 EST, Height Start [...] 05/01/22 14:32:00 EDT, [facility], Rx in [place], 172.72, cm, 04/18/22 16:13:00 EDT, Height Start Date: 05/01/22 Status: OrderedTopamax 50 mg oral tablet See Instructions, 1 tablet By Mouth in the AM, and take 2 tablets at bedtime., # 90 tablet, 11 Refills, Maintenance, 07/13/20 11:56:00 EDT, [id number], print in upper sorbian please., 172.72, cm, 01/11/20 8:49:00 EDT, Height [...]
--- OUTSIDE RECORDS SUMMARY | 2022-08-09 01:08 | XMS_ITS | Continuity of Care Document ---
:1975 Author Organization [facility] Address [address] [facility] [address], [address]rd [address], [address] [place] [address]- Care Team Providers Name Role Phone Luis Miguel SALINAS, Rose Whiting Primary Care Physician [phone] Encounter [facility] [place] Date(s): 10/13/20 - 02/10/21 [facility] [address], [address], [address] [place] [id number] Attending Physician: Kristal Wang MD Admitting Physician: Kristal Wang MD Allergies, Adverse Reactions, Alerts Substance Reaction Severity [...] (oldterm)3 11/25/11 Given 1Admin Note: VIS given- 05/[id number] Note: vis 04/12/943Admin Note: vis 06/13/09 Medications acetaminophen 650 mg oral tablet, extended release 1 tablet = 650 mg, By Mouth, Every 8 hours, Irish sig, # 50 tablet, 2 Refills, Maintenance, [...] mL, 0 Refills, Maintenance, 02/05/21 15:15:00 EDT, [facility]/pharmacy #2071, Rx in Irish, 3 drops Ears, Both 2 times a [...] 03/25/19 15:10:20 EDT, Route to Pharmacy Electronically, [id number], [facility] [address] Start Date: 03/25/19 Status: Orderedgabapentin 400 mg [...] Acute 01/28/22 9:38:00 EDT, 02/02/21 9:38:00 EDT, [facility]/pharmacy #2071, Partial fill upon patient request if the prescription is for a schedule II opioid drug., 17... Start Date: 02/02/21 Stop Date: 01/28/22 Status: Orderedomeprazole 20 mg oral enteric coated capsule 1 capsule, By Mouth, Daily, # 30 capsule, 2 Refills, Maintenance, 02/05/21 16:01:00 EDT, [facility], 172.72, cm, 02/02/21 9:05:00 EDT, Height Start Date: 02/05/21 Status: Orderedprazosin 2 mg oral capsule 1 capsule = 2 mg, By Mouth, Daily at bedtime, Rx'd by psych, 0 Refills, Maintenance, 01/07/19 13:56:38 EST Start Date: 01/07/19 Status: OrderedSUMAtriptan 100 mg oral tablet 1 tablet = 100 mg, By Mouth, Once, PRN for migraine headache, may repeat dose in 2 hours if needed, no more than 3 doses/week, # 9 tablet, 2 Refills, Soft Stop, 01/04/21 16:38:00 EST, Tablet, [facility], INSTRUCTIONS IN MONGOLIAN, 172.72, cm,... Start Date: 01/04/21 Status: OrderedTopamax 50 mg oral tablet See Instructions, 1 tablet By Mouth in the AM, and take 2 tablets at bedtime., # 90 tablet, 11 Refills, Maintenance, 07/13/20 11:56:00 EDT, [facility]/pharmacy #2071, print in martiniquais please., 172.72, cm, 01/11/20 8:49:00 EDT, Height [...] leg(Confirmed) Active Headache(Confirmed) Active ROMEO (headache)(Confirmed) Active Low back pain(Confirmed) Active Obstructive sleep apnea Active syndrome(Confirmed) Other Respiratory 05/21/12 Active Tuberculosis(Confirmed) Paranoid Type Schizophrenia(Confirmed) 11/25/11 Active Vertigo(Confirmed) Active Social History Social History Type Response Smoking Status Former smoker entered on: 07/22/16 Sex
--- OUTSIDE RECORDS SUMMARY | 2022-08-09 01:08 | XMS_ITS | Continuity of Care Document ---
:1975 Author Organization [facility] Address [address] [facility], [address]rd Floor, [address] [place] [address]- Care Team Providers Name Role Phone Rose Bolanos NP Primary Care Physician [facility]counter [facility] Date(s): 02/02/21 - 03/04/21 [facility] [address] [facility], [address]rd Floor, [address] [place] [id number] Attending Physician: AdmtrKanika Admitting Physician: Admtr, Ar8 Referring Physician: Admtr, Ar8 Allergies, Adverse Reactions, Alerts Substance Reaction Severity [...] (oldterm)3 11/25/11 Given 1Admin Note: VIS given- 05/[id number] Note: vis 04/12/943Admin Note: vis 06/13/09 Medications acetaminophen 650 mg oral tablet, extended release 1 tablet = 650 mg, By Mouth, Every 8 hours, Setswana sig, # 50 tablet, 2 Refills, Maintenance, [...] mL, 0 Refills, Maintenance, 02/05/21 15:15:00 EDT, [facility]/pharmacy #2071, Rx in Setsw[place], 3 drops Ears, Both 2 times a [...] 03/25/19 15:10:20 EDT, Route to Pharmacy Electronically, [id number], [facility] [address] Start Date: 03/25/19 Status: Orderedgabapentin 400 mg [...] Acute 01/28/22 9:38:00 EDT, 02/02/21 9:38:00 EDT, [facility]/pharmacy #2071, Partial fill upon patient request if the prescription is for a schedule II opioid drug., 17... Start Date: 02/02/21 Stop Date: 01/28/22 Status: Orderedomeprazole 20 mg oral enteric coated capsule 1 capsule, By Mouth, Daily, # 30 capsule, 2 Refills, Maintenance, 02/05/21 16:01:00 EDT, [facility], 172.72, cm, 02/02/21 9:05:00 EDT, Height Start [...] Refills, Soft Stop, 01/04/21 16:38:00 EST, Tablet, [facility]/pharmacy #2071, INSTRUCTIONS IN [place], 172.72, cm,... Start Date: 01/04/21 Status: OrderedTopamax 50 mg oral tablet See Instructions, 1 tablet By Mouth in the AM, and take 2 tablets at bedtime., # 90 tablet, 11 Refills, Maintenance, 07/13/20 11:56:00 EDT, [facility]/pharmacy #2071, print in turkish please., 172.72, cm, 01/11/20 8:49:00 EDT, Height [...]
--- OUTSIDE RECORDS SUMMARY | 2022-08-09 01:08 | XMS_ITS | Continuity of Care Document ---
:1975 Author Organization [facility] Address [address] [place] [address]- Care Team Providers Name Role Phone Rose Bolanos NP Primary Care Physician [phone] [facility]counter [facility] Date(s): 03/13/22 - 04/12/[address] [address] Allergies, Adverse Reactions, Alerts No Known Allergies [...] (oldterm)3 11/25/11 Given 1Admin Note: VIS given- 05/[id number] Note: vis 04/12/943Admin Note: vis 06/13/09 Medications acetaminophen 650 mg oral tablet, extended release 1 tablet = 650 mg, By Mouth, Every 8 hours, Polish sig, # 50 tablet, 2 Refills, Maintenance, [...] mL, 0 Refills, Maintenance, 02/05/21 15:15:00 EDT, [facility]/pharmacy #[id number], Rx in Polish, 3 drops Ears, Both 2 times a [...] 03/25/19 15:10:20 EDT, Route to Pharmacy Electronically, [id number], [facility] [address] Start Date: 03/25/19 Status: Orderedmeloxicam 7.5 mg oral tablet See Instructions, KIARA EUBANKSA TODOS LOS HUGO, # 30 tablet, 1 Refills, [facility], 172.72, cm, 12/11/21 15:33:00 EST, Height Start Date: 03/01/22 Status: Orderedomeprazole 20 mg oral enteric coated capsule 1 capsule, By Mouth, Daily, # 30 capsule, 2 Refills, Maintenance, 02/25/22 9:24:00 EDT, [facility]/pharmacy#2071, 172.72, cm, 12/11/21 15:33:00 EST, Height Start Date: 02/25/22 Status: Orderedprazosin 2 mg oral capsule 1 capsule = 2 mg, By Mouth, Daily at bedtime, Rx'd by psych, 0 Refills, Maintenance, 01/07/19 13:56:38 EST Start Date: 01/07/19 Status: OrderedTopamax 50 mg oral tablet See Instructions, 1 tablet By Mouth in the AM, and take 2 tablets at bedtime., # 90 tablet, 11 Refills, Maintenance, 07/13/20 11:56:00 EDT, [id number], print in maori please., 172.72, cm, 01/11/20 8:49:00 EDT, Height [...]
--- OUTSIDE RECORDS SUMMARY | 2022-08-09 01:08 | XMS_ITS | Continuity of Care Document ---
:1975 Author Organization [facility] Address [address] [place] [address]- Care Team Providers Name Role Phone Rose Bolanos NP Primary Care Physician Encounter [facility] Date(s): 04/25/22 - 05/25/[address] [address]- Attending Physician: Kanika Lainez Admitting Physician: AdmtrKanika Referring Physician: Admtr, Ar8 Allergies, Adverse Reactions, [...] (oldterm)3 11/25/11 Given 1Admin Note: VIS given- 05/[id number] Note: vis 04/12/943Admin Note: vis 06/13/09 Medications acetaminophen 650 mg oral tablet, extended release 1 tablet = 650 mg, By Mouth, Every 8 hours, Jamaican sig, # 50 tablet, 2 Refills, Maintenance, [...] mL, 0 Refills, Maintenance, 02/05/21 15:15:00 EDT, [facility]/pharmacy #[id number], Rx in Jamaican, 3 drops Ears, Both 2 times a [...] 03/25/19 15:10:20 EDT, Route to Pharmacy Electronically, [id number], [facility] [address] Start Date: 03/25/19 Status: Orderedmeloxicam 7.5 mg oral tablet See Instructions, KIARA LIGHT TODOS [place], # 30 tablet, 2 Refills, [facility], 172.72, cm, 04/18/22 16:13:00 EDT, Height Start Date: 05/01/22 Status: Orderedomeprazole 20 mg oral enteric coated capsule 1 capsule, By Mouth, Daily, # 30 capsule, 2 Refills, Maintenance, 02/25/22 9:24:00 EDT, [facility]/pharmacy#2071, 172.72, cm, 12/11/21 15:33:00 EST, [...] 05/01/22 14:32:00 EDT, [id number], Rx in Jamaican, 172.72, cm, 04/18/22 16:13:00 EDT, Height Start Date: 05/01/22 Status: OrderedTopamax 50 mg oral tablet See Instructions, 1 tablet By Mouth in the AM, and take 2 tablets at bedtime., # 90 tablet, 11 Refills, Maintenance, 07/13/20 11:56:00 EDT, [facility]/pharmacy #[id number], print in british please., 172.72, cm, 01/11/20 8:49:00 EDT, Height [...]
--- OUTSIDE RECORDS SUMMARY | 2022-08-09 01:08 | XMS_ITS | Continuity of Care Document ---
:1975 Author Organization [facility] Address [address] [place] [address]- Care Team Providers Name Role Phone Rose Bolanos NP Primary Care Physician [phone] [facility] [facility] Date(s): 05/14/21 - 06/13/[address] [address]- Attending Physician: Kanika Lainez Admitting Physician: AdmtrKanika Referring Physician: Admtr, ArSandra Allergies, Adverse Reactions, Alerts Substance Reaction Severity [...] (oldterm)3 11/25/11 Given 1Admin Note: VIS given- 05/[id number] Note: vis 04/12/943Admin Note: vis 06/13/09 Medications acetaminophen 650 mg oral tablet, extended release 1 tablet = 650 mg, By Mouth, Every 8 hours, Sami sig, # 50 tablet, 2 Refills, Maintenance, [...] mL, 0 Refills, Maintenance, 02/05/21 15:15:00 EDT, [facility]/pharmacy #[id number], Rx in Sami, 3 drops Ears, Both 2 times a [...] 03/25/19 15:10:20 EDT, Route to Pharmacy Electronically, [id number], [facility] [address] Start Date: 03/25/19 Status: Orderedgabapentin 400 mg [...] Acute 01/28/22 9:38:00 EDT, 02/02/21 9:38:00 EDT, [facility]/pharmacy #2071, Partial fill upon patient request if the prescription is for a schedule II opioid drug., 17... Start Date: 02/02/21 Stop Date: 01/28/22 Status: Orderedomeprazole 20 mg oral enteric coated capsule 1 capsule, By Mouth, Daily, # 30 capsule, 2 Refills, Maintenance, 02/05/21 16:01:00 EDT, [facility], 172.72, cm, 02/02/21 9:05:00 EDT, Height Start [...] # 9 tablet, 2 Refills, Soft Stop, [facility], 172.72, cm, 02/19/21 9:02:00 EDT, Height Start Date: 05/23/21 Status: OrderedTopamax 50 mg oral tablet See Instructions, 1 tablet By Mouth in the AM, and take 2 tablets at bedtime., # 90 tablet, 11 Refills, Maintenance, 07/13/20 11:56:00 EDT, [facility]/pharmacy #5408, print in romansh please., 172.72, cm, 01/11/20 8:49:00 EDT, Height [...]
--- OUTSIDE RECORDS SUMMARY | 2022-08-09 01:08 | XMS_ITS | Continuity of Care Document ---
:1975 Author Organization [facility] Address [address] [place] [address]- Care Team Providers Name Role Phone Luis Miguel SALINAS, Rose Whiting Primary Care Physician [phone] Encounter [facility] Date(s): 08/22/21 - 09/21/[address] [address]- Allergies, Adverse Reactions, Alerts Substance Reaction Severity [...] (oldterm)3 11/25/11 Given 1Admin Note: VIS given- 05/[id number] Note: vis 04/12/943Admin Note: vis 06/13/09 Medications acetaminophen 650 mg oral tablet, extended release 1 tablet = 650 mg, By Mouth, Every 8 hours, Uzbek sig, # 50 tablet, 2 Refills, Maintenance, [...] mL, 0 Refills, Maintenance, 02/05/21 15:15:00 EDT, [facility]/pharmacy #[id number], Rx in Uzbek, 3 drops Ears, Both 2 times a [...] 03/25/19 15:10:20 EDT, Route to Pharmacy Electronically, [id number], [facility] [address] Start Date: 03/25/19 Status: Orderedgabapentin 400 mg [...] Acute 01/28/22 9:38:00 EDT, 02/02/21 9:38:00 EDT, [facility]/pharmacy #2071, Partial fill upon patient request if the prescription is for a schedule II opioid drug., 17... Start Date: 02/02/21 Stop Date: 3/28/22 Status: Orderedmeloxicam 7.5 mg oral tablet 1 tablet = 7.5 mg, By Mouth, Daily, # 30 tablet, 1 Refills, Maintenance, 09/17/21 15:18:00 EST, Tablet, [facility]/pharmacy #2071, Partial fill upon patient request if the prescription is for a schedule II opioid drug., 172.72, cm, 02/19/21 9:02:00 EDT, Height Start Date: 09/17/21 Status: Orderedomeprazole 20 mg oral enteric coated capsule 1 capsule, By Mouth, Daily, # 30 capsule, 2 Refills, Maintenance, 08/22/21 16:39:00 EDT, [facility]/pharmacy #207, 172.72, cm, 02/19/21 9:02:00 EDT, Height Start [...] PER WEEK, # 9 tablet, 2 Refills, [facility], 172.72, cm, 02/19/21 9:02:00 EDT, Height Start Date: 08/21/21 Status: OrderedTopamax 50 mg oral tablet See Instructions, 1 tablet By Mouth in the AM, and take 2 tablets at bedtime., # 90 tablet, 11 Refills, Maintenance, 07/13/20 11:56:00 EDT, [facility]/pharmacy #[id number], print in czech please., 172.72, cm, 01/11/20 8:49:00 EDT, Height [...]
--- OUTSIDE RECORDS SUMMARY | 2022-08-09 01:08 | XMS_ITS | Continuity of Care Document ---
:[address] [facility] Address [address] [place] [address]- Care Team Providers Name Role Phone Rose Bolanos NP Primary Care Physician [phone] Encounter [facility] Date(s): 11/27/21 - 12/27/[address] [address] Attending Physician: Kanika Lainez Admitting Physician: Kanika Lainez Referring Physician: AdmtrKanika Allergies, Adverse Reactions, Alerts No Known Allergies [...] (oldterm)3 11/25/11 Given 1Admin Note: VIS given- 05/[id number] Note: vis 04/12/943Admin Note: vis 06/13/09 Medications acetaminophen 650 mg oral tablet, extended release 1 tablet = 650 mg, By Mouth, Every 8 hours, Greek sig, # 50 tablet, 2 Refills, Maintenance, [...] Refills, Maintenance, 02/05/21 15:15:00 EDT, [facility]/pharmacy #[id number], Rx in Greek, 3 drops Ears, Both 2 times a [...] 03/25/19 15:10:20 EDT, Route to Pharmacy Electronically, [id number], [facility] [address] Start Date: 03/25/19 Status: Orderedmagnesium oxide 400 mg oral tablet 1 tablet = 400 mg, By Mouth, Daily, for 30 days, take with food, # 30 tablet, 11 Refills, Acute 01/28/22 9:38:00 EDT, 02/02/21 9:38:00 EDT, [facility]/pharmacy #2071, Partial fill upon patient request if the prescription is for a schedule II opioid drug., 17... Start Date: 02/02/21 Stop Date: 01/28/22 Status: Orderedmeloxicam 7.5 mg oral tablet See Instructions, KIARA TAYLOR KULDEEP TOS LOS HUGO, # 30 tablet, 1 Refills, [facility], 172.72, cm, 10/08/21 8:46:00 EST, Height Start Date: 11/09/21 Status: Orderedomeprazole 20 mg oral enteric coated capsule 1 capsule, By Mouth, Daily, # 30 capsule, 2 Refills, Maintenance, 08/22/21 16:39:00 EDT, [facility]/pharmacy #2071, 172.72, cm, 02/19/21 9:02:00 EDT, Height [...] PER WEEK, # 9 tablet, 2 Refills, [facility], 172.72, cm, 10/08/21 8:46:00 EST, Height Start Date: 10/08/21 Status: OrderedTopamax 50 mg oral tablet See Instructions, 1 tablet By Mouth in the AM, and take 2 tablets at bedtime., # 90 tablet, 11 Refills, Maintenance, 07/13/20 11:56:00 EDT, [facility]/pharmacy #[id number], print in canadian please., 172.72, cm, 01/11/20 8:49:00 EDT, Height [...]
--- OUTSIDE RECORDS SUMMARY | 2022-08-09 01:08 | XMS_ITS | Continuity of Care Document ---
:1975 Author Organization [facility] Address [address] [place] [address]- Care Team Providers Name Role Phone Rose Bolanos NP Primary Care Physician Encounter [facility] Date(s): 11/21/21 - 12/21/[address] [address]- Allergies, Adverse Reactions, Alerts No Known Allergies [...] (oldterm)3 11/25/11 Given 1Admin Note: VIS given- 05/[id number] Note: vis 04/12/943Admin Note: vis 06/13/09 Medications acetaminophen 650 mg oral tablet, extended release 1 tablet = 650 mg, By Mouth, Every 8 hours, Burundian sig, # 50 tablet, 2 Refills, Maintenance, [...] mL, 0 Refills, Maintenance, 02/05/21 15:15:00 EDT, [facility]/pharmacy #2071, Rx in Burundian, 3 drops Ears, Both 2 times a [...] 03/25/19 15:10:20 EDT, Route to Pharmacy Electronically, [id number], [facility] [address] Start Date: 03/25/19 Status: Orderedmagnesium oxide 400 mg oral tablet 1 tablet = 400 mg, By Mouth, Daily, for 30 days, take with food, # 30 tablet, 11 Refills, Acute 01/28/22 9:38:00 EDT, 02/02/21 9:38:00 EDT, [facility]/pharmacy #2071, Partial fill upon patient request if the prescription is for a schedule II opioid drug., 17... Start Date: 02/02/21 Stop Date: 01/28/22 Status: Orderedmeloxicam 7.5 mg oral tablet See Instructions, KIARA EUBANKSMagi TOS DASHAWN HUGO, # 30 tablet, 1 Refills, [facility], 172.72, cm, 10/08/21 8:46:00 EST, Height Start Date: 11/09/21 Status: Orderedomeprazole 20 mg oral enteric coated capsule 1 capsule, By Mouth, Daily, # 30 capsule, 2 Refills, Maintenance, 08/22/21 16:39:00 EDT, [facility]/pharmacy #2071, 172.72, cm, 02/19/21 9:02:00 EDT, Height [...] PER WEEK, # 9 tablet, 2 Refills, [facility], 172.72, cm, 10/08/21 8:46:00 EST, Height Start Date: 10/08/21 Status: OrderedTopamax 50 mg oral tablet See Instructions, 1 tablet By Mouth in the AM, and take 2 tablets at bedtime., # 90 tablet, 11 Refills, Maintenance, 07/13/20 11:56:00 EDT, [facility]/pharmacy #2071, print in algerian please., 172.72, cm, 01/11/20 8:49:00 EDT, Height [...]
--- OUTSIDE RECORDS SUMMARY | 2022-08-09 01:08 | XMS_ITS | Continuity of Care Document ---
:1975 Author Organization [facility] Address [address] [place] [address]- Care Team Providers Name Role Phone Luis Miguel SALINAS, Rose Whiting Primary Care Physician Encounter [facility] Date(s): 04/18/22 - 04/25/22 [facility] [address], [place] [address] Attending Physician: Leonard Harrison DO Referring Physician: Rose Bolanos NP Allergies, Adverse Reactions, Alerts No Known Allergies [...] (oldterm)3 11/25/11 Given 1Admin Note: VIS given- 05/[id number] Note: vis 04/12/943Admin Note: vis 06/13/09 Medications acetaminophen 650 mg oral tablet, extended release 1 tablet = 650 mg, By Mouth, Every 8 hours, Persian sig, # 50 tablet, 2 Refills, Maintenance, [...] mL, 0 Refills, Maintenance, 02/05/21 15:15:00 EDT, [facility]/pharmacy #2071, Rx in Persian, 3 drops Ears, Both 2 times a [...] 03/25/19 15:10:20 EDT, Route to Pharmacy Electronically, [id number], [facility] [address] Start Date: 03/25/19 Status: Orderedmeloxicam 7.5 mg oral tablet See Instructions, KIARA LIGHT TODOS LOS HUGO, # 30 tablet, 1 Refills, [facility], 172.72, cm, 12/11/21 15:33:00 EST, Height Start Date: 03/01/22 Status: Orderedomeprazole 20 mg oral enteric coated capsule 1 capsule, By Mouth, Daily, # 30 capsule, 2 Refills, Maintenance, 02/25/22 9:24:00 EDT, [facility]/pharmacy#2071, 172.72, cm, 12/11/21 15:33:00 EST, Height Start [...] tablet, 11 Refills, Maintenance, 07/13/20 11:56:00 EDT, [facility]/pharmacy #[id number], print in finnish please., 172.72, cm, 01/11/20 8:49:00 EDT, Height [...] 11/25/11 Active Healthcare maintenance(Confirmed) Active Vertigo(Confirmed) Active Vital Signs Most recent to oldest [Reference Range]: 1 Height 172.72 cm (04/18/22 4:13 PM) Oxygen Saturation [94-100 %] 100 % (04/18/22 4:13 PM) Pulse Rate [55-90 bpm] 68 bpm (04/18/22 4:13 PM) Blood Pressure [90-138/55-84 mm Hg] 132/81 mm Hg (04/18/22 4:13 PM) Temperature [96.8-100.4 DegF] 98.3 DegF (04/18/22 4:13 PM) Mode of Delivery (Oxygen) Room air (04/18/22 4:13 PM) Blood pressure sites Arm, right (04/18/22 4:13 PM) Temperature Route Temporal (04/18/22 4:13 PM) Social History Social History Type Response Smoking Status Former smoker entered on: 07/22/16 Sex
--- OUTSIDE RECORDS SUMMARY | 2022-08-09 01:08 | XMS_ITS | Continuity of Care Document ---
:1975 Author Organization [facility] Address [address] [facility] [address], 3rd Floor, [address] [place] [address]- Care Team Providers Name Role Phone Luis Miguel SALINAS, Rose Whiting Primary Care Physician [facility] Date(s): 01/04/21 - 02/03/21 [facility] [address] [facility] [facility], [address]rd Floor, [address] [place] [address] Allergies, Adverse Reactions, Alerts Substance Reaction Severity [...] (oldterm)3 11/25/11 Given 1Admin Note: VIS given- 05/[id number] Note: vis 04/12/943Admin Note: vis 06/13/09 Medications acetaminophen 650 mg oral tablet, extended release 1 tablet = 650 mg, By Mouth, Every 8 hours, Cypriot sig, # 50 tablet, 2 Refills, Maintenance, 03/02/19 17:24:22 EDT Start Date: 03/02/19 Status: OrderedBiPAP Equipment See Instructions, # 1 each, Refills 12, Tot. Refills 12, Maintenance, BIpap- tubes , mask & flilters. Dx: CYNTHIA, 10/16/15 15:12:04, Compound Start Date: 10/16/15 Status: OrderedclonazePAM 0.5 mg oral tablet 1 [...] 03/25/19 15:10:20 EDT, Route to Pharmacy Electronically, [id number], [facility] [address] Start Date: 03/25/19 Status: Orderedgabapentin 400 mg [...] Acute 01/28/22 9:38:00 EDT, 02/02/21 9:38:00 EDT, [facility]/pharmacy #[id number], Partial fill upon patient request if the prescription is for a schedule II opioid drug., 17... Start Date: 02/02/21 Stop Date: 01/28/22 Status: Orderedomeprazole 20 mg oral delayed release tablet 1 tablet = 20 mg, By Mouth, Daily, (do not crush or chew), # 30 tablet, 2 Refills, Maintenance, 08/21/20 19:42:00 EDT, [facility]/pharmacy #2071, 172.72, cm, 01/11/20 8:49:00 EDT, Height Start Date: 08/21/20 Stop Date: 11/19/20 Status: Orderedprazosin 2 mg oral capsule 1 [...] Refills, Soft Stop, 01/04/21 16:38:00 EST, Tablet, [facility]/pharmacy #[id number], INSTRUCTIONS IN ROMANSH, 172.72, cm,... Start Date: 01/04/21 Status: OrderedTopamax 50 mg oral tablet See Instructions, 1 tablet By Mouth in the AM, and take 2 tablets at bedtime., # 90 tablet, 11 Refills, Maintenance, 07/13/20 11:56:00 EDT, [facility]/pharmacy #[id number], print in mongolian please., 172.72, cm, 01/11/20 8:49:00 EDT, Height [...] of the lower leg(Confirmed) Active Headache(Confirmed) Active Low back pain(Confirmed) Active Obstructive sleep apnea Active syndrome(Confirmed) Other Respiratory 05/21/12 Active Tuberculosis(Confirmed) Paranoid Type Schizophrenia(Confirmed) 11/25/11 Active Social History Social History Type Response Smoking Status Former smoker entered on: 07/22/16 Sex
--- OUTSIDE RECORDS SUMMARY | 2022-08-09 01:08 | XMS_ITS | Continuity of Care Document ---
:1975 Author Organization [facility] Address [address] [facility], 3rd Floor, [address] [place] [address]- Care Team Providers Name Role Phone Luis Miguel SALINAS, Rose Whiting Primary Care Physician Encounter [facility] Date(s): 12/25/20 - 01/24/21 [facility] [address] [facility], [address]rd Floor, [address] [place] [address] Allergies, Adverse Reactions, Alerts Substance Reaction Severity [...] (oldterm)3 11/25/11 Given 1Admin Note: VIS given- 05/[id number] Note: vis 04/12/943Admin Note: vis 06/13/09 Medications acetaminophen 650 mg oral tablet, extended release 1 tablet = 650 mg, By Mouth, Every 8 hours, Pitcairn Islander sig, # 50 tablet, 2 Refills, Maintenance, [...] 03/25/19 15:10:20 EDT, Route to Pharmacy Electronically, [id number], [facility] [address] Start Date: 03/25/19 Status: Orderedgabapentin 400 mg oral capsule 400 mg, 1, capsule, By Mouth, 2 times a day, Takes once to twice a day, Refills 0, Maintenance, 06/03/19 9:59:32 EDT Start Date: 06/03/19 Status: Orderedmeloxicam 7.5 mg oral tablet 1 tablet = 7.5 mg, By Mouth, Daily, # 30 tablet, 0 Refills, Maintenance, 04/21/19 12:30:09 EDT, Tablet Start Date: 04/21/19 Status: Orderedomeprazole 20 mg oral delayed release tablet 1 tablet = 20 mg, By Mouth, Daily, (do not crush or chew), # 30 tablet, 2 Refills, Maintenance, 08/21/20 19:42:00 EDT, [facility]/pharmacy #2071, 172.72, cm, 01/11/20 8:49:00 EDT, Height [...] Refills, Soft Stop, 01/04/21 16:38:00 EST, Tablet, [facility]/pharmacy #2071, INSTRUCTIONS IN UKRAINIAN, 172.72, cm,... Start Date: 01/04/21 Status: OrderedTopamax 50 mg oral tablet See Instructions, 1 tablet By Mouth in the AM, and take 2 tablets at bedtime., # 90 tablet, 11 Refills, Maintenance, 07/13/20 11:56:00 EDT, [facility]/pharmacy #2071, print in malay please., 172.72, cm, 01/11/20 8:49:00 EDT, Height [...]
--- OUTSIDE RECORDS SUMMARY | 2022-08-09 01:08 | XMS_ITS | Continuity of Care Document ---
:1975 Author Organization [facility] Address [address] [place] [address]- Care Team Providers Name Role Phone Luis Miguel ASLINAS, Rose Whiting Primary Care Physician [facility]counter [facility] Date(s): 09/11/21 - 10/13/[address] [address]- Attending Physician: Not on Staff, Attending MD Referring Physician: Rose Bolanos NP Allergies, Adverse Reactions, Alerts Substance Reaction Severity [...] (oldterm)3 11/25/11 Given 1Admin Note: VIS given- 05/[id number] Note: vis 04/12/943Admin Note: vis 06/13/09 Medications acetaminophen 650 mg oral tablet, extended release 1 tablet = 650 mg, By Mouth, Every 8 hours, [place] Islander sig, # 50 tablet, 2 Refills, [...] mL, 0 Refills, Maintenance, 02/05/21 15:15:00 EDT, [facility]/pharmacy #2071, Rx in [place]er, 3 drops Ears, Both 2 times a [...] 03/25/19 15:10:20 EDT, Route to Pharmacy Electronically, [id number], [facility] [address] Start Date: 03/25/19 Status: Orderedmagnesium oxide 400 mg oral tablet 1 tablet = 400 mg, By Mouth, Daily, for 30 days, take with food, # 30 tablet, 11 Refills, Acute 01/28/22 9:38:00 EDT, 02/02/21 9:38:00 EDT, [facility]/pharmacy #2071, Partial fill upon patient request if the prescription is for a schedule II opioid drug., 17... Start Date: 02/02/21 Stop Date: 01/28/22 Status: Orderedmeloxicam 7.5 mg oral tablet 1 tablet = 7.5 mg, By Mouth, Daily, # 30 tablet, 1 Refills, Maintenance, 09/17/21 15:18:00 EST, Tablet, [facility]/pharmacy #2071, Partial fill upon patient request [...] PER WEEK, # 9 tablet, 2 Refills, [facility], 172.72, cm, 10/08/21 8:46:00 EST, Height Start Date: 10/08/21 Status: OrderedSUMAtriptan 100 mg oral tablet See Instructions, TOME CLAUDIA TABLETONCE NEEDED FOR MIGRAINE MAY REPEAT IN 2 HRS IF NEED NO MORE THAN 3 DOSES PER WEEK, # 9 tablet, 2 Refills, [facility]774, 172.72, cm, 02/19/21 9:02:00 EDT, Height Start Date: 08/21/21 Status: OrderedTopamax 50 mg oral tablet See Instructions, 1 tablet By Mouth in the AM, and take 2 tablets at bedtime., # 90 tablet, 11 Refills, Maintenance, 07/13/20 11:56:00 EDT, [facility]/pharmacy #2071, print in kittitian please., 172.72, cm, 01/11/20 8:49:00 EDT, Height [...]
--- OUTSIDE RECORDS SUMMARY | 2022-08-09 01:08 | XMS_ITS | Continuity of Care Document ---
:1975 Author Organization [facility] Address [address] [place] [address]- Care Team Providers Name Role Phone Rose Bolanos NP Primary Care Physician [phone] Encounter [facility] Date(s): 12/10/21 - 01/09/[address] [id number] Allergies, Adverse Reactions, Alerts No Known [...] (oldterm)3 11/25/11 Given 1Admin Note: VIS given- [id number] Note: vis 04/12/943Admin Note: vis 06/13/09 Medications acetaminophen 650 mg oral tablet, extended release 1 tablet = 650 mg, By Mouth, Every 8 hours, Palauan sig, # 50 tablet, 2 Refills, Maintenance, [...] mL, 0 Refills, Maintenance, 02/05/21 15:15:00 EDT, [facility]/pharmacy #[id number], Rx in Palauan, 3 drops Ears, Both 2 times a [...] 03/25/19 15:10:20 EDT, Route to Pharmacy Electronically, [id number], [facility] [id number] Start Date: 03/25/19 Status: Orderedmagnesium oxide 400 mg oral tablet 1 tablet = 400 mg, By Mouth, Daily, for 30 days, take with food, # 30 tablet, 11 Refills, Acute 01/28/22 9:38:00 EDT, 02/02/21 9:38:00 EDT, [facility]/pharmacy #[id number], Partial fill upon patient request if the prescription is for a schedule II opioid drug., 17... Start Date: 02/02/21 Stop Date: 01/28/22 Status: Orderedmeloxicam 7.5 mg oral tablet See Instructions, [facility] CLAUDIA LIGHT TOS [facility], # 30 tablet, 1 Refills, [facility], 172.72, cm, 10/08/21 8:46:00 EST, Height Start Date: 11/09/21 Status: Orderedomeprazole 20 mg oral enteric coated capsule 1 capsule, By Mouth, Daily, # 30 capsule, 2 Refills, Maintenance, 08/22/21 16:39:00 EDT, [facility]/pharmacy #[id number], 172.72, cm, 02/19/21 9:02:00 [...] PER WEEK, # 9 tablet, 2 Refills, [facility], 172.72, cm, 10/08/21 8:46:00 EST, Height Start Date: 10/08/21 Status: OrderedTopamax 50 mg oral tablet See Instructions, 1 tablet By Mouth in the AM, and take 2 tablets at bedtime., # 90 tablet, 11 Refills, Maintenance, 07/13/20 11:56:00 EDT, [facility]/pharmacy #[id number], print in indonesian please., 172.72, cm, 01/11/20 8:49:00 EDT, Height [...]
--- OUTSIDE RECORDS SUMMARY | 2022-08-09 01:08 | XMS_ITS | Continuity of Care Document ---
:1975 Author Organization [facility] Address [address] [place] [address]- Care Team Providers Name Role Phone Rose Bolanos NP Primary Care Physician [place] [facility] [place]/01[place] - 11/11/[address] [address]- [facility] Attending Physician: Admmarla, Kanika Admitting Physician: AdmtrKanika Referring Physician: Admtr, Ar8 [...] (oldterm)3 11/25/11 Given 1Admin Note: VIS given- [id number] Note: vis 04/12/943Admin Note: vis 06/13/09 Medications acetaminophen 650 mg oral tablet, extended release 1 tablet = 650 mg, By Mouth, Every 8 hours, Faroese sig, # 50 tablet, 2 Refills, Maintenance, 03/02/19 17:24:22 EDT Start Date: 03/02/19 Status: OrderedBiPAP Equipment See Instructions, # 1 each, Refills 12, Tot. Refills 12, Maintenance, BIpap- tubes , mask & flilters. Dx: CYNTHIA, 12/14/15 15:12:04, Compound Start Date: 10/16/15 Status: OrderedclonazePAM [...] 03/25/19 15:10:20 EDT, Route to Pharmacy Electronically, [id number], [facility] [id number] Start Date: 03/25/19 Status: Orderedgabapentin 400 mg oral capsule 400 mg, 1, capsule, By Mouth, 2 times a day, Takes once to twice a day, Refills 0, Maintenance, 06/03/19 9:59:32 EDT Start Date: 06/03/19 Status: Orderedmagnesium oxide 400 mg oral tablet 1 tablet = 400 mg, By Mouth, Daily, for 30 days, Take with meal., # 30 tablet, 5 Refills, Acute 11/30/19 10:03:43 EST, 06/03/19 10:03:43 EDT Start Date: 06/03/19 Stop Date: 11/30/19 Status: Orderedmeloxicam 7.5 mg oral tablet 1 tablet = 7.5 mg, By Mouth, Daily, # 30 tablet, 0 Refills, Maintenance, 04/21/19 12:30:09 EDT, Tablet Start Date: 04/21/19 Status: Orderedomeprazole 20 mg oral delayed release tablet 1 tablet = 20 mg, By Mouth, Daily, (do not crush or chew), # 30 tablet, 1 Refills, Maintenance, 10/28/19 12:39:00 EST, [facility]/pharmacy #[id number], 172.72, cm, 08/19/19 12:23:00 EDT, Height Start Date: 10/28/19 Stop Date: 12/27/19 Status: Orderedprazosin 2 mg oral capsule 1 capsule = 2 mg, By Mouth, Daily at bedtime, Rx'd by psych, 0 Refills, Maintenance, 01/07/19 13:56:38 EST Start Date: 01/07/19 Status: OrderedSUMAtriptan 100 mg oral tablet 1 tablet = 100 mg, By Mouth, Once, PRN for migraine headache, NO MORE THAN 3 DOSES A WEEK., # 9 tablet, 2 Refills, Soft Stop, 06/03/19 10:01:19 EDT, Tablet, INSTRUCTIONS IN LATVIAN Start Date: 06/03/19 Status: OrderedTopamax 50 mg oral tablet See Instructions, 1 tablet By Mouth in the AM, and take 2 tablets at bedtime., # 90 tablet, 11 Refills, Maintenance, 06/03/19 10:00:40 EDT, print in kazakh please. Start Date: 06/03/19 Status: Orderedzolpidem 10 mg oral tablet 1 [...]
--- OUTSIDE RECORDS SUMMARY | 2022-08-09 01:08 | XMS_ITS | Continuity of Care Document ---
:1975 Author Organization [facility] Address [address], [address]rd Floor, [address] [place] [address]- Care Team Providers Name Role Phone Luis Miguel SALINAS, Rose Whiting Primary Care Physician [phone] Encounter [facility] Date(s): 01/11/21 - 02/10/21 [facility] [address], [address], [address] [place] [address] Allergies, Adverse Reactions, Alerts Substance Reaction [...] (oldterm)3 11/25/11 Given 1Admin Note: VIS given- [id number] Note: vis 04/12/943Admin Note: vis 06/13/09 Medications acetaminophen 650 mg oral tablet, extended release 1 tablet = 650 mg, By Mouth, Every 8 hours, Malagasy sig, # 50 tablet, 2 Refills, Maintenance, [...] EDT, [facility]/pharmacy #[id number], Rx in Malagasy, 3 drops Ears, Both 2 times a [...] 03/25/19 15:10:20 EDT, Route to Pharmacy Electronically, [id number], [facility] [id number] Start Date: 03/25/19 Status: Orderedgabapentin 400 mg [...] Refills, Maintenance, 02/05/21 16:01:00 EDT, [facility], 172.72, cm, 02/02/21 9:05:00 EDT, Height Start [...] Refills, Soft Stop, 01/04/21 16:38:00 EST, Tablet, [facility]/pharmacy #[id number], INSTRUCTIONS IN SURINAMESE, 172.72, cm,... Start Date: 01/04/21 Status: OrderedTopamax 50 mg oral tablet See Instructions, 1 tablet By Mouth in the AM, and take 2 tablets at bedtime., # 90 tablet, 11 Refills, Maintenance, 07/13/20 11:56:00 EDT, [facility]/pharmacy #[id number], print in malay please., 172.72, cm, [...]
--- OUTSIDE RECORDS SUMMARY | 2022-08-09 01:08 | XMS_ITS | Continuity of Care Document ---
:1975 Author Organization [facility] Address [address] [place] [address]- Care Team Providers Name Role Phone Luis Miguel SALINAS, Rose Whiting Primary Care Physician [phone] Encounter [facility] Date(s): 02/19/21 - 03/21/[address] [address]- Attending Physician: AdmKanika gutiérrez Admitting Physician: Admtr, Ar8 Referring Physician: Admtr, [...] (oldterm)3 11/25/11 Given 1Admin Note: VIS given- [id number] Note: vis 04/12/943Admin Note: vis 06/13/09 Medications acetaminophen 650 mg oral tablet, extended release 1 tablet = 650 mg, By Mouth, Every 8 hours, Indonesian sig, # 50 tablet, 2 Refills, Maintenance, [...] [facility]/pharmacy #[id number], Rx in Indonesian, 3 drops Ears, Both 2 times a [...] 03/25/19 15:10:20 EDT, Route to Pharmacy Electronically, [id number], [facility] [id number] Start Date: 03/25/19 Status: Orderedgabapentin 400 mg [...] Refills, Maintenance, 02/05/21 16:01:00 EDT, [facility], 172.72, cm, 02/02/21 9:05:00 EDT, Height Start [...] Refills, Soft Stop, 01/04/21 16:38:00 EST, Tablet, [facility]/pharmacy #[id number], INSTRUCTIONS IN MARTINIQUAIS, 172.72, cm,... Start Date: 01/04/21 Status: OrderedTopamax 50 mg oral tablet See Instructions, 1 tablet By Mouth in the AM, and take 2 tablets at bedtime., # 90 tablet, 11 Refills, Maintenance, 07/13/20 11:56:00 EDT, [facility]/pharmacy #[id number], print in guatemalan please., 172.72, cm, 01/11/20 8:49:00 EDT, Height [...]
--- OUTSIDE RECORDS SUMMARY | 2022-08-09 01:08 | XMS_ITS | Continuity of Care Document ---
:1975 Author Organization [facility] Address [address] [place] [address]- Care Team Providers Name Role Phone Luis Miguel SALINAS, Rose Whiting Primary Care Physician Encounter [facility] Date(s): 04/23/21 - 06/13/[address] [address]- Attending Physician: Anton Delarosa MD Admitting Physician: Anton Delarosa MD Referring Physician: Rose Bolanos NP Allergies, [...] (oldterm)3 11/25/11 Given 1Admin Note: VIS given- [id number] Note: vis 04/12/943Admin Note: vis 06/13/09 Medications acetaminophen 650 mg oral tablet, extended release 1 tablet = 650 mg, By Mouth, Every 8 hours, Latvian sig, # 50 tablet, 2 Refills, Maintenance, [...] 0 Refills, Maintenance, 02/05/21 15:15:00 EDT, [facility]/pharmacy #[id number], Rx in Latvian, 3 drops Ears, Both 2 times a [...] 03/25/19 15:10:20 EDT, Route to Pharmacy Electronically, [id number], [facility] [address] Start Date: 03/25/19 Status: Orderedgabapentin 400 mg [...] 01/28/22 9:38:00 EDT, 02/02/21 9:38:00 EDT, [facility]/pharmacy #[id number], Partial fill upon patient request if the prescription is for a schedule II opioid drug., 17... Start Date: 02/02/21 Stop Date: 01/28/22 Status: Orderedomeprazole 20 mg oral enteric coated capsule 1 capsule, By Mouth, Daily, # 30 capsule, 2 Refills, Maintenance, 02/05/21 16:01:00 EDT, [facility], 172.72, cm, 02/02/21 9:05:00 EDT, Height Start [...] tablet, 2 Refills, Soft Stop, [facility], 172.72, cm, 02/19/21 9:02:00 EDT, Height Start Date: 05/23/21 Status: OrderedTopamax 50 mg oral tablet See Instructions, 1 tablet By Mouth in the AM, and take 2 tablets at bedtime., # 90 tablet, 11 Refills, Maintenance, 07/13/20 11:56:00 EDT, [facility]/pharmacy #[id number], print in martiniquais please., 172.72, cm, [...]
--- OUTSIDE RECORDS SUMMARY | 2022-08-09 01:08 | XMS_ITS | Continuity of Care Document ---
:1975 Author Organization [facility] Address [address] [place] [address]- Care Team Providers Name Role Phone Rose Bolanos NP Primary Care Physician [phone] Encounter [facility] Date(s): 01/01/22 - 01/31/[address] [address] Allergies, Adverse Reactions, Alerts No Known Allergies [...] (oldterm)3 11/25/11 Given 1Admin Note: VIS given- [id number] Note: vis 04/12/943Admin Note: vis 06/13/09 Medications acetaminophen 650 mg oral tablet, extended release 1 tablet = 650 mg, By Mouth, Every 8 hours, Armenian sig, # 50 tablet, 2 Refills, Maintenance, [...] [facility]/pharmacy #[id number], Rx in Armenian, 3 drops Ears, Both 2 times a [...] 03/25/19 15:10:20 EDT, Route to Pharmacy Electronically, [id number], [facility] [id number] Start Date: 03/25/19 Status: Orderedmeloxicam 7.5 mg oral tablet See Instructions, [facility] EUBANKSA TODOS [facility], # 30 tablet, 1 Refills, [facility], 172.72, cm, 10/08/21 8:46:00 EST, Height Start Date: 11/09/21 Status: Orderedomeprazole 20 mg oral enteric coated capsule 1 capsule, By Mouth, Daily, # 30 capsule, 2 Refills, Maintenance, 08/22/21 16:39:00 EDT, [facility]/pharmacy #[id number], 172.72, cm, 02/19/21 9:02:00 EDT, [...] PER WEEK, # 9 tablet, 2 Refills, [facility], 172.72, cm, 10/08/21 8:46:00 EST, Height Start Date: 10/08/21 Status: OrderedTopamax 50 mg oral tablet See Instructions, 1 tablet By Mouth in the AM, and take 2 tablets at bedtime., # 90 tablet, 11 Refills, Maintenance, 07/13/20 11:56:00 EDT, [facility]/pharmacy #[id number], print in kazakh please., 172.72, cm, 01/11/20 8:49:00 EDT, Height [...]
--- OUTSIDE RECORDS SUMMARY | 2022-08-09 01:08 | XMS_ITS | Continuity of Care Document ---
:1975 Author Organization [facility] Address [address] [place] [address]- Care Team Providers Name Role Phone Rose Bolanos NP Primary Care Physician Encounter [facility] Date(s): 11/27/21 - 12/27/[address] [address]- Allergies, Adverse Reactions, Alerts No Known Allergies [...] (oldterm)3 11/25/11 Given 1Admin Note: VIS given- [id number] Note: vis 04/12/943Admin Note: vis 06/13/09 Medications acetaminophen 650 mg oral tablet, extended release 1 tablet = 650 mg, By Mouth, Every 8 hours, Martiniquais sig, # 50 tablet, 2 Refills, Maintenance, [...] mL, 0 Refills, Maintenance, 02/05/21 15:15:00 EDT, [facility]/pharmacy #[id number], Rx in Martiniquais, 3 drops Ears, Both 2 times a [...] 03/25/19 15:10:20 EDT, Route to Pharmacy Electronically, [id number], [facility] [address] Start Date: 03/25/19 Status: Orderedmagnesium oxide 400 mg oral tablet 1 tablet = 400 mg, By Mouth, Daily, for 30 days, take with food, # 30 tablet, 11 Refills, Acute 01/28/22 9:38:00 EDT, 02/02/21 9:38:00 EDT, [facility]/pharmacy #[id number], Partial fill upon patient request if the prescription is for a schedule II opioid drug., 17... Start Date: 02/02/21 Stop Date: 01/28/22 Status: Orderedmeloxicam 7.5 mg oral tablet See Instructions, KIARA EUBANKSMagi TOS DASHAWN HUGO, # 30 tablet, 1 Refills, [facility], 172.72, cm, 10/08/21 8:46:00 EST, Height Start Date: 11/09/21 Status: Orderedomeprazole 20 mg oral enteric coated capsule 1 capsule, By Mouth, Daily, # 30 capsule, 2 Refills, Maintenance, 08/22/21 16:39:00 EDT, [facility]/pharmacy #2071, 172.72, cm, 02/19/21 [...] PER WEEK, # 9 tablet, 2 Refills, [facility], 172.72, cm, 10/08/21 8:46:00 EST, Height Start Date: 10/08/21 Status: OrderedTopamax 50 mg oral tablet See Instructions, 1 tablet By Mouth in the AM, and take 2 tablets at bedtime., # 90 tablet, 11 Refills, Maintenance, 07/13/20 11:56:00 EDT, [facility]/pharmacy #[id number], print in norwegian please., 172.72, cm, 01/11/20 8:49:00 EDT, Height [...]
[2022-08-09] MEDS: Diphth,Pertus(ACell),Tet Adult 0.5 ML SYRINGE IM (01:31)
== END 2022-08-09 02:02 | disposition home or self-care (01) ==
PROVIDERS: Emergency Provider Student in an Organized Health Care Education/Training Program
DX: S61.412A Laceration without foreign body of left hand, initial encounter (principal); S60.512A Abrasion of left hand, initial encounter; W26.9XXA Contact with unspecified sharp object(s), initial encounter; Y93.9 Activity, unspecified; Y92.9 Unspecified place or not applicable; Y99.9 Unspecified external cause status; Z79.899 Other long term (current) drug therapy
CPT/HCPCS: 12046; 90471; 90715; 99283

== ENCOUNTER 2023-02-23 04:57 | Emergency (ER) | payer OTHER, SELFPAY ==
[2023-02-23 05:06] VITALS: BP 137/80; PULSE 73; RESP 18; TEMP 36.3; O2SAT 99; BMI 36.2
[2023-02-23 05:52] VITALS: PULSE 74; RESP 16; TEMP 37.1; O2SAT 98
--- NOTE | 2023-02-23 06:55 | PC.NURSE ---
pt is awaiting MD mitchell. report given to Maty RANDALL about pts present condition and the reason pt came to the ED this am.
[2023-02-23] MEDS: Ketorolac Tromethamine 15 MG/ML VIAL IM (07:12)
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
--- NOTE | 2023-02-23 07:15 | PC.NURSE ---
Resumed care of this patient this morning, he is currently resting in bed, with pain in R elbow, IM ordered for pain, and given in R deltoid. He is able to make needs known, no other complaints at this time.
[2023-02-23 07:58] VITALS: BP 133/86; PULSE 62; RESP 13; TEMP 36.5; O2SAT 97
== END 2023-02-23 08:54 | disposition home or self-care (01) ==
PROVIDERS: Emergency Provider Emergency Medicine Emergency Medical Services
DX: M65.231 Calcific tendinitis, right forearm (principal); Z79.899 Other long term (current) drug therapy
CPT/HCPCS: 96372; 99284; J1885

== ENCOUNTER 2023-06-21 11:00 | Emergency (ER) | payer OTHER, SELFPAY ==
--- NOTE | ~2023-06-21 | XR_ITS ---
EXAMINATION: XR HAND, LEFT CLINICAL INFORMATION: Left hand laceration status post fall COMPARISON: None available. TECHNIQUE: PA, lateral, and oblique views of the left hand. An indicator arrow points to the distal aspect of the fourth digit. FINDINGS: Mild soft tissue swelling and deformity seen in the distal aspect of the fourth digit. No radiopaque foreign body is seen. There is no acute fracture or dislocation. The joint spaces are unremarkable. XR/XR hand LT min 3V IMPRESSION: Mild soft tissue swelling and deformity in the distal aspect of the fourth digit without acute underlying osseous abnormality. No radiopaque foreign body.
[2023-06-21 11:01] VITALS: BP 131/86; PULSE 69; RESP 18; TEMP 36.9; O2SAT 96; BMI 34.7
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
[2023-06-21] MEDS: Lidocaine HCl 1 % MPF 5 ML VIAL 10 ML INFILTRATI (13:16)
[2023-06-21] MEDS: Bacitracin Oint 0.9 GM PACKET 2 APPL TOPICAL (14:03)
== END 2023-06-21 14:37 | disposition home or self-care (01) ==
PROVIDERS: Emergency Provider Emergency Medicine
DX: S61.412A Laceration without foreign body of left hand, initial encounter (principal); W26.8XXA Contact with other sharp object(s), not elsewhere classified, initial encounter; Y93.89 Activity, other specified; Y92.096 Garden or yard of other non-institutional residence as the place of occurrence of the external cause; Y99.9 Unspecified external cause status
CPT/HCPCS: 12002; 73130; 99282; 99284

== ENCOUNTER 2023-07-21 06:19 | Emergency (ER) | payer OTHER, SELFPAY ==
[2023-07-21 06:30] VITALS: BP 145/90; PULSE 71; RESP 18; TEMP 36.6; O2SAT 96; BMI 35.7
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
== END 2023-07-21 08:19 | disposition home or self-care (01) ==
PROVIDERS: Emergency Provider Emergency Medicine
DX: B86 Scabies (principal); Z79.899 Other long term (current) drug therapy
CPT/HCPCS: 99282; 99283

== ENCOUNTER 2024-04-30 10:21 | Emergency (ER) | payer MEDICAID, SELFPAY ==
--- NOTE | ~2024-04-30 | CT_ITS ---
EXAMINATION: CT SOFT TISSUE NECK WITH CONTRAST CLINICAL INFORMATION: Right ear pain and neck swelling. COMPARISON: None available. TECHNIQUE: Following the intravenous administration of 60 mL of Omnipaque 350 intravenous contrast, helical imaging was performed in the axial plane with generation of coronal and sagittal reformatted images. This CT examination was performed using dose optimization techniques as appropriate, variously including the following: *Automated exposure control *Adjustment of mA and/or kV according to patient size (this includes techniques or standardized protocols for targeted exams where dose is matched to indication/reason for exam; i.e. extremities or head) *Use of iterative reconstruction technique DLP: 944 mGy-cm FINDINGS: There is soft tissue swelling and subcutaneous fat stranding of the right external ear and right side of the face overlying the superficial lobe of the right parotid gland. There are adjacent small right neck lymph nodes probably reactive. No abnormal mass, abscess, stone or duct dilatation in the right parotid gland is seen. Salivary glands are otherwise normal. The nasopharynx, oropharynx, hypopharynx and larynx are normal. The thyroid gland is normal. Visualized intracranial structures are normal. The orbits are normal. Paranasal sinuses, mastoid air cells and middle ears are clear. Vascular structures are normal. The superior mediastinum is normal. The lung apices are clear. There is degenerative spondylosis of the cervical spine from C4-C5 to C7-T1. No fracture or bone lesion. CT/CT soft tissue neck w IV con IMPRESSION: Soft tissue swelling and stranding of the fat of the right external ear and right side of the face overlying the superficial lobe of the right parotid gland. There is shotty cervical lymphadenopathy. No enlarged lymph nodes, mass or focal fluid collection. Differential would include cellulitis and inflammatory changes secondary to parotiditis.
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
[2024-04-30 10:33] VITALS: BP 148/87; PULSE 81; RESP 14; TEMP 37.4; O2SAT 98
[2024-04-30 10:38] VITALS: BP 141/87; PULSE 83; RESP 16; TEMP 37.1; O2SAT 97; BMI 36.4
[2024-04-30 11:13] LABS: MANUAL DIFF FLAG NO
--- NOTE | 2024-04-30 11:13 | PC.NURSE ---
a&ox4. vss and up to date. pt presents to the ED w/ right sided ear pain/swelling/warm to the touch. pt also verbalizes neck inflammation/sore throat/drainage. denies difficulty swallowing/fever/chills. 20gIV placed in the right AC - labs obtained/sent to lab. no sob/wob noted. respirations even/unlabored. pt waiting to go to CT at this time. plan of care ongoing. call meehan placed within reach.
[2024-04-30 11:14] LABS: Basophils Percent Auto 0.3 % (0-2); Eosinophils Absolute Auto 0.1 X10*3/uL (0.0-0.4); Eosinophils Percent Auto 0.6 % (0-4); Hematocrit 43.9 % (42.0-52.0); Hemoglobin 15.8 g/dl (14.0-18.0); Imm Gran Abs Auto 0.03 X10*3/uL (0.00-0.03); Imm Gran Pct Auto 0.3 % (0.0-0.4); Lymphocytes Absolute Auto 0.8 X10*3/uL (1.2-4.9); Lymphocytes Percent Auto 7.9 % (20-40); Mean Corpuscular Hemoglobin 31.3 pg (27.0-33.0); Mean Corpuscular Volume 86.9 fL (80.0-98.0); Mean Platelet Volume 10.1 fL (9.4-12.4); Monocytes Absolute Auto 0.4 X10*3/uL (0.1-1.2); Monocytes Percent Auto 4.4 % (2-11); Neutrophils Absolute Auto 8.2 x10*3/uL (2.0-8.3); Neutrophils Percent Auto 86.5 % (45-73); Platelet Count 200 X10*3/uL (160-400); Red Blood Count 5.05 X10*6/uL (4.60-5.80); Red Cell Distribution Width 12.7 % (11.0-16.0); White Blood Count 9.5 X10*3/uL (4.8-10.8)
[2024-04-30 11:41] LABS: Alanine Aminotransferase 29 U/L (0-40); Albumin Level 4.4 g/dL (3.5-5.0); Alkaline Phosphatase 84 U/L (39-117); Anion Gap 12 (12-20); Aspartate Amino Transferase 23 U/L (5-37); Bilirubin Total 0.7 mg/dL (0.0-1.0); Blood Urea Nitrogen 15 mg/dL (9-16); C Reactive Protein 0.52 mg/dL (< or = 0.50); Calcium 9.2 mg/dL (8.4-10.2); Carbon Dioxide 23 mmol/L (22-29); Chloride 106 mmol/L (96-108); Creatinine Clr Calc Pharmacy 98.7; Estimated Glomerular Filt Rate > 60; Glucose Random 142 mg/dL (60-115); Potassium 3.4 mmol/L (3.3-5.1); Sodium 138 mmol/L (135-145); Total Protein 7.7 g/dL (6.5-8.0)
[2024-04-30 11:50] LABS: Erythrocyte Sedimentation Rate 2 MM/HR (0-15)
[2024-04-30] MEDS: iohexoL 350 MG/ML 100 ML INFUS..BTL IV (12:01)
[2024-04-30 14:04] VITALS: BP 159/91; PULSE 90; RESP 16; TEMP 37; O2SAT 100
[2024-04-30 17:44] VITALS: BP 159/91; PULSE 90; RESP 16; TEMP 37; O2SAT 100
== END 2024-04-30 17:45 | disposition home or self-care (01) ==
PROVIDERS: Registered Nurse Emergency; Emergency Provider Emergency Medicine
DX: H60.11 Cellulitis of right external ear (principal); H92.01 Otalgia, right ear; M54.2 Cervicalgia; Z79.899 Other long term (current) drug therapy
CPT/HCPCS: 36415; 70491; 80053; 85025; 85652; 86140; 99282; 99283; 99284; Q9967